=== PATIENT | male | born 1940 | race Caucasian/White ===

== ENCOUNTER 2016-04-17 11:10 | Inpatient (IN) | payer MEDICARE, BC ==
[~2016-04-17] VITALS: Ht 162.6 cm; Wt 102.6 kg
[~2016-04-17 11:10] MED LIST: AMLO1CAP68 PO; ASPI-611 PO; GUAI600T42 PO; KCL PO; METF-200 PO; PANT40TA PO; SIMV40TA82 PO; SUCR1ORA PO; TETR15DR83 BOTH EYES; augmentin PO
--- OUTSIDE RECORDS SUMMARY | 2016-04-17 11:15 | XMS REPORT | Continuity of Care Document ---
Author Author [facility] Organization [facility] Address Unknown Phone Unavailable Allergies Medications Problems Procedures Results Encounters ACCT No. Visit Date/Time Discharge Status Pt. Type Provider Facility Loc./Unit Complaint [id number] 05/01/2013 13:43:00 05/01/2013 23 :59:59 CLS Outpatient
--- OUTSIDE RECORDS SUMMARY | 2016-04-17 11:16 | XMS REPORT | Continuity of Care Document ---
Author Author [facility] Organization [facility] Address Unknown Phone Unavailable Support Name Relationship Address Phone LOBO COOK DO Caregiver [address] [place] [address] Unavailable DON RAY II, MD Caregiver [address] [place] [address] Unavailable DON RAY II, MD Caregiver [address] [place] [address] Unavailable DON RAY II, MD Caregiver [address] [place] [address] Unavailable KLAUDIA GARCIA Next Of Kin [address] [place] [address] Insurance Providers Guarantor Jesus Garcia Address [address] [place] [address] Email DENIED [facility] Number [id number] Subscriber's Name Jesus Garcia Relationship 18 Self Group Number [id number] Payer Medicare Policy Number [id number] Subscriber's Name Jesus Garcia Relationship 18 Self Advance Directives Directive Response Recorded Date/Time Dr Ryan Resuscitation Status Full Code 03/28/16 9:57am Resuscitation Documents on File No 03/28/16 11:51am DPOA for Healthcare Only No 03/30/16 9:05am Living Will No 03/28/16 11:51am Advance Directive Consult Information Given 03/29/16 2:42pm Problems Active Problems Medical Problem Onset Date Status Bradycardia Unknown Resolved CHOLECYSTITIS, PROBABLE ASCENDING CHOLANGITIS Unknown Acute Cataracts, bilateral Unknown Chronic Constipation Unknown Acute Diverticulosis Unknown Chronic Dysphagia Unknown Glaucoma Unknown Chronic HTN (hypertension) Unknown Chronic Hyperlipidemia Unknown Chronic Hypokalemia Unknown Resolved NIDDY (non-insulin dependent diabetes mellitus in young) Unknown Chronic OA (osteoarthritis) Unknown Chronic Obesity Unknown Chronic Pancreatitis Unknown Resolved Pneumonia Unknown Sepsis Unknown UTI Unknown Acute Medications Current Home Medications Medication Dose Units Route Directions Days Qty Instructions Start Date Amlodipine Besylate/Benazepril (Amlodipine-Benazepril 10-20 Mg) 1 Cap Capsule 1 Cap Oral Daily 01/02/09 Aspirin 81 Mg Tablet 81 Mg Oral Daily 10/22/12 Augmentin 875 Mg Oral Twice A Day for Pneumonia 10 Days 04/04/16 Guaifenesin (Mucinex) 600 Mg Tablet.er 600 Mg Oral As Needed Kcl 20 Meq Oral Twice A Day for Hypokalemia 30 Days 60 Bottle Metformin Hcl 500 Mg Tablet Twice A Day 01/02/09 Pantoprazole Sodium (Protonix) 40 Mg Tablet.dr 40 Mg Oral Before Breakfast for Acid Reflux 30 Days 30 Tablet Take 1 tablet, by mouth, one time a day before breakfast. 04/04/16 Simvastatin 40 Mg Tablet 40 Mg Oral Daily 01/02/09 Sucralfate 1 G/10 Ml Suspension 1 G Oral Before Meals And At Bedtime 30 Days 04/04/16 Tetrahydrozoline Hcl (Visine) 15 Ml Drops 15 Ml Ophthalmic Bedtime 02/15/13 Past Home Medications Medication Directions Ordered Status Naproxen 500 Mg Tablet, 500 Mg Oral As Needed 01/02/09 Discontinued Social History Social History Problem Response Recorded Date/Time Onset Date Status Reason for Hospitalization pancreatitis 04/04/2016 1:34pm Not Applicable Not Applicable Chewing Tobacco Status No 02/15/2013 5:24pm Not Applicable Not Applicable Hx Substance Use No 03/28/2016 8:16am Not Applicable Not Applicable Hx Alcohol Use No 03/28/2016 8:16am Not Applicable Not Applicable Has the pt used tobacco in the last 12 months No 03/28/2016 11:54am Not Applicable Not Applicable Query Response Start Date Stop Date Smoking Status Unknown if ever smoked Hospital Discharge Instructions Instructions: Care Instructions: Reason for Hospitalization: pancreatitis I was in the hospital because (patient own words): "Pain in my stomach" Discharge Diet: regular Discharge Activity: as tolerated Follow Up Appointments: FOLLOW UP WITH DR. RAY IN HIS OFFICE ON 04/08/16 AT 9:00 AM. Pending Lab / Results: No Pending Lab Wound/Incision Care: NA Pain Management/Treatment: NA Expected Signs/Symptoms: fatigue Notify Physician If: N,V,abd pain During Business Hours:: Please call the physician's office at [phone] After Business Hours:: Please call [phone] and have the sodium chlorite operator page the physician. Condition at time of discharge: Good Plan of Care Discharge Date 04/04/16 2:05pm Disposition 01 DISCHARGED HOME, SELF-CARE Instructions/Education Provided Pancreatitis (DC) Prescriptions See Medication Section Care Plan and Goals See Discharge Instructions Section Functional Status Query Response Date Recorded Mobility Status Ambulatory April 04, 2016 1:34pm Assistive Devices None April 04, 2016 1:34pm Activity Limitations None April 04, 2016 1:34pm Feeding Ability Independent April 04, 2016 1:34pm Toileting Ability Independent April 04, 2016 1:34pm Grooming Ability Independent April 04, 2016 1:34pm Dressing Ability Independent April 04, 2016 1:34pm Driving Ability Independent April 04, 2016 1:34pm Housework Ability Independent April 04, 2016 1:34pm Meal Preparation Ability Independent April 04, 2016 1:34pm Stair Climbing Ability Independent April 04, 2016 1:34pm Ability to complete ADL's impeded by No change April 04, 2016 1:34pm Cognitive/Perceptual Impairments Impaired vision April 04, 2016 1:34pm Visual Assistive Devices Glasses With patient April 03, 2016 3:14pm Hearing Assistive Devices Left hearing aid Right hearing aid With patient April 03, 2016 3:14pm Preferred Method of Learning Demonstration Listening Pictures Hands on April 03, 2016 3:14pm Allergies, Adverse Reactions, Alerts Allergen Type Severity Reaction Status Last Updated No Known Drug Allergies Allergy Unknown Active 02/15/13 Immunizations Query Response on File Recorded Date/Time Hx Influenza Vaccination Y 12/201503/28/16 11:54am Hx Pneumococcal Vaccination N REFUSED 03/28/2016 03/28/16 11:54am Hx Tetanus, Diptheria, Pertussis UNSURE 02/15/13 12:23pm Hx Influenza Vaccination Y 12/201503/28/16 11:54am Hx Tetanus, Diptheria, Pertussis UNSURE 02/15/13 12:23pm Influenza Vaccine Hx 12/201503/28/16 12:22pm Vital Signs Acute Vital Signs Vital Response Date/Time Temperature (Fahrenheit) 99.5 deg F (96.8 - 99.1) 04/04/2016 1:19pm Temperature (Calculated Celsius) 37.15384 degrees C (36.0 - 37.3) 04/04/2016 1:19pm Temperature Source Temporal 04/01/2016 12:47pm Pulse Rate (adult) 74 bpm (60 - 100) 04/04/2016 1:19pm Respiratory Rate 22 breaths/min (10 - 20) 04/04/2016 1:24pm O2 Sat by Pulse Oximetry 96 % (90 - 100) 04/04/2016 1:19pm Oxygen Delivery Method Nasal Cannula 04/01/2016 7:55pm Oxygen Delivery Method Room Air 04/04/2016 1:19pm Oxygen Flow Rate 1.00 L/min 04/02/2016 1:00am Blood Pressure 144/71 mm Hg 04/04/2016 1:19pm Blood Pressure Source Automatic Cuff 04/04/2016 1:19pm Height (Feet) 5 feet 04/01/2016 8:44pm Height (Inches) 6.00 inches 04/01/2016 8:44pm Weight (Kilograms) 103.500 kg 04/03/2016 10:35am Body Mass Index (BMI) 34.4 03/28/2016 11:51am Results Laboratory Results Test Name Result Units Flags Reference Collection Date/Time Result Date/ Time Comments White Blood Count 15.5 T/MM3 H 4.5-11.0 04/04/2016 4:04/04/2016 5: 34am Red Blood Count 4.28 M/MM3 L 4.50-5.90 04/04/2016 4:04/04/2016 5: 34am Hemoglobin 12.0 GM/DL L 13.5-17.5 04/04/2016 4:04/04/2016 5:34am Hematocrit 35.3 % L 41-53 04/04/2016 4:04/04/2016 5:34am Mean Corpuscular Volume 82.5 UM3 80-100 04/04/2016 4:04/04/2016 5: 34am Mean Corpuscular Hemoglobin 28.0 UUG 26-34 04/04/2016 4:2016 5:34am Mean Corpuscular Hemoglobin Concent 34.0 GM/DL 31-37 04/04/2016 4:04/04/2016 5:34am RDW Standard Deviation 41.8 FL 36.9-50.2 04/04/2016 4:04/04/2016 5 :34am Platelet Count 291 T/MM3 130-400 04/04/2016 4:04/04/2016 5:34am Mean Platelet Volume 9.9 UM3 9.4-12.4 04/04/2016 4:04/04/2016 5: 34am Neutrophils % (Manual) 67.0 % H 33-66 04/04/2016 4:04/04/2016 6: 13am Band Neutrophils % 9.0 % H 0-6 04/04/2016 4:04/04/2016 6:13am Lymphocytes % (Manual) 8.0 % L 23-45 04/04/2016 4:04/04/2016 6: 13am Monocytes % (Manual) 15.0 % H 0-9.0 04/04/2016 4:04/04/2016 6:13am Eosinophils % (Manual) 1.0 % 0-4 04/04/2016 4:04/04/2016 6:13am Band Neutrophils # 1.4 T/MM3 04/04/2016 4:04/04/2016 6:13am Absolute Neutrophils (Manual) 10.4 T/MM3 H 1.8-7.7 04/04/2016 4: 6:13am Lymphocytes # (Manual) 1.2 T/MM3 1-4.8 04/04/2016 4:04/04/2016 6: 13am Monocytes # (Manual) 2.3 T/MM3 H 0-0.8 04/04/2016 4:04/04/2016 6: 13am Eosinophils # (Manual) 0.2 T/MM3 0-0.5 04/04/2016 4:04/04/2016 6: 13am Toxic Granulation 1+ 03/30/2016 8:09am 03/30/2016 8:56am Red Cell Morphology Comment NORMAL 04/04/2016 4:04/04/2016 6: 13am Prothromb Time International Ratio 1.06 H 0.76-1.04 03/28/2016 8:03/28/2016 8:21am THERAPUTIC RANGE=2.00-3.00 FOR ANTI-THROMBOSIS THERAPUTIC RANGE=2.50-3.50 FOR IMPLANTED VALVE Icterus Index < 2 0-7 04/04/2016 4:04/04/2016 5:41am Chemistry Specimen Hemolysis < 15 0-25 04/04/2016 4:04/04/2016 5 :41am 0-25: Specimen Exhibited No Hemolysis. Turbidity < 20 0-20 04/04/2016 4:04/04/2016 5:41am Sodium Level 139 MEQ/L 134-144 04/04/2016 4:04/04/2016 5:41am Potassium Level 2.8 MEQ/L *L 3.6-5 04/04/2016 4:04/04/2016 5:50am Chloride Level 102 MEQ/L 98-107 04/04/2016 4:04/04/2016 5:41am Carbon Dioxide Level 26 MEQ/L 22-30 04/04/2016 4:04/04/2016 5: 41am Anion Gap 11 MEQ/L 5-04/04/2016 4:04/04/2016 5:41am Blood Urea Nitrogen 11.0 MG/DL 9-04/04/2016 4:04/04/2016 5: 41am Creatinine 0.8 MG/DL 0.8-1.5 04/04/2016 4:04/04/2016 5:41am BUN/Creatinine Ratio 14 RATIO 6-04/04/2016 4:04/04/2016 5:41am Glomerular Filtration Rate Calc 94 04/04/2016 4:04/04/2016 5: 41am Glucose Level 130 MG/DL H 75-110 04/04/2016 4:04/04/2016 5:41am Calculated Osmolality 269 MOSM/KG 261-280 04/04/2016 4:04/04/2016 5:41am Calcium Level 7.9 MG/DL L 8.4-10.2 04/04/2016 4:04/04/2016 5:41am Total Bilirubin 0.90 MG/DL 0.20-1.30 04/04/2016 4:04/04/2016 5: 41am Unconjugated Bilirubin 0.30 MG/DL 0.00-1.10 03/28/2016 8:00am 2016 8:50am Conjugated Bilirubin 0.00 MG/DL 0.00-0.30 03/28/2016 8:0003/28/2016 8:50am Alkaline Phosphatase 265 U/L H 38-126 04/04/2016 4:04/04/2016 5: 41am Total Protein 6.2 G/DL L 6.3-8.2 04/04/2016 4:04/04/2016 5:41am Albumin 3.0 G/DL L 3.5-5.0 04/04/2016 4:04/04/2016 5:41am Globulin 3.2 G/DL 2.4-3.6 04/04/2016 4:04/04/2016 5:41am Albumin/Globulin Ratio 0.9 RATIO L 1.1-2.2 04/04/2016 4:04/04/2016 5:41am Aspartate Amino Transf (AST/SGOT) 57 U/L 17-59 04/04/2016 4:2016 5:41am Alanine Aminotransferase (ALT/SGPT) 72 U/L 21-72 04/04/2016 4: 5:41am Cholesterol Level 86 MG/DL L 132-199 03/30/2016 8:03/31/2016 12: 42am Triglycerides Level 100 MG/DL 40-160 03/30/2016 8:03/31/2016 12: 42am HDL Cholesterol Direct 24 MG/DL L 40-60 03/30/2016 8:03/31/2016 12: 42am LDL Cholesterol, Calculated 42.0 L 66-159 03/30/2016 8:2016 12:42am VLDL Cholesterol 20.0 MG/DL 0-28 03/30/2016 8:03/31/2016 12:42am Cholesterol/HDL Ratio 3.6 RATIO 0-5.0 03/30/2016 8:03/31/2016 12: 42am Troponin I < 0.012 ng/ml 0-0.12 03/28/2016 8:03/28/2016 8:38am Troponin values with a difference of 55% increase from orginal troponin value represent a true biological DELTA value. (%increase Calc=Orginal Troponin value, divided by subsequent Troponin value, multiplied by 100) YN-Kcs-K-Type Natriuretic Peptide 231 PG/ML H 0-175 03/28/2016 8: 8:38am Rule in cut points: <50 years old=450; 50-75 years old=900; >75 years old=1800; When utilizing ProBNP rule-in cut points, adjustment for impaired renal function is typically not required. Lipase 130 U/L 23-300 04/02/2016 5:04am 04/02/2016 5:21am Magnesium Level 2.3 MG/DL 1.6-2.3 04/04/2016 4:10am 04/04/2016 6:24am Plasma Lactate 1.3 MMOL/L 0.6-2.2 04/02/2016 5:04am 04/02/2016 5:19am Procalcitonin 0.05 NG/ML 03/28/2016 8:52am 03/28/2016 9:44am PCT </= 0.5 ng/mL - sepsis not likely; PCT >0.5 and </=2 ng/mL - sepsis possible; PCT >2 ng/mL - sepsis likely; PCT >/=10 ng/mL - systemic inflammatory response - sepsis or septic shock highly indicated. Vancomycin Level Trough 8.50 UG/ML L 15-20 03/30/2016 4:08am 03/30/2016 5:01am Urine Collection Type VOIDED-NOT CC-MIDSTR 03/29/2016 1:2016 1:41am Urine Color YELLOW YELLOW 03/29/2016 1:03/29/2016 1:41am Urine Turbidity SL CLOUDY CLEAR 03/29/2016 1:03/29/2016 1:41am Urine Specific [place] 1.025 1.015-1.025 03/29/2016 1:2016 1:41am Urine pH 5.0 5.0-8.0 03/29/2016 1:03/29/2016 1:41am Urine Leukocyte Esterase NEGATIVE NEGATIVE 03/29/2016 1:2016 1:41am Urine Nitrite NEGATIVE NEGATIVE 03/29/2016 1:03/29/2016 1:41am Urine Protein TRACE A NEGATIVE 03/29/2016 1:03/29/2016 1:41am Urine Glucose (UA) NEGATIVE NEGATIVE 03/29/2016 1:03/29/2016 1: 41am Urine Ketones NEGATIVE NEGATIVE 03/29/2016 1:03/29/2016 1:41am Urine Urobilinogen 0.2 EU/DL NORMAL 03/29/2016 1:03/29/2016 1: 41am Urine Bilirubin NEGATIVE NEGATIVE 03/29/2016 1:03/29/2016 1: 41am Urine Blood 3+ A NEGATIVE 03/29/2016 1:03/29/2016 1:41am Urine WBC NONE SEEN /HPF 0-5 03/29/2016 1:03/29/2016 1:50am Urine RBC 5-10 /HPF H 0-3 03/29/2016 1:03/29/2016 1:50am Urine Bacteria NONE SEEN NEGATIVE 03/29/2016 1:03/29/2016 1: 50am Urine Yeast TRACE H NEGATIVE 03/29/2016 1:03/29/2016 1:50am BUDDING Urine Culture Indicated CULT NOT INDICATED 03/29/2016 1:2016 1:50am Glucometer 165 mg/dL H 75-110 04/04/2016 11:51am 04/04/2016 11:55am Microbiology Results Procedure Source Organism/Result Collection Date/Time Result Date/Time Result Status Blood Culture Peripheral/Iv Start NO GROWTH AFTER 5 DAYS 03/28/2016 8:52am 04/02/2016 9:16am Final Name: JESUS GARCIA Unit #: [id number] : 1940 Sex: M DISCHARGE SUMMARY Admit Date: 03/28/16 Report #: [id number] [facility] General Date Date DATE: 04/04/16 TIME: 12:42 Attending Physician Don Ray II, MD Admitting Physician Don Ray II, MD Consulting Physician Mark Dickens MD Admitting Diagnosis 1. Pancreatitis Discharge Diagnosis pancreatitis Procedures EGD showed esophagitis Laboratory Laboratory Tests Test 04/03/16 05:05 04/03/16 05:34 04/03/16 12:23 04/03/16 18:07 White Blood Count 14.6T/MM3 (4.5-11.0) Red Blood Count 4.30M/MM3 (4.50-5.90) Hemoglobin 12.1GM/DL (13.5-17.5) Hematocrit 35.3% (41-53) Mean Corpuscular Volume 82.1UM3 (80-100) Mean Corpuscular Hemoglobin 28.1UUG (26-34) Mean Corpuscular Hemoglobin Concent 34.3GM/DL (31-37) RDW Standard Deviation 41.3FL (36.9-50.2) Platelet Count 268T/MM3 (130-400) Mean Platelet Volume 9.9UM3 (9.4-12.4) Immature Granulocyte % (Auto) % (0.0-0.5) Neutrophils (%) (Auto) % (33-66) Lymphocytes (%) (Auto) % (23-45) Monocytes (%) (Auto) % (0-9.0) Eosinophils (%) (Auto) % (0-4) Basophils (%) (Auto) % (0-2) Absolute Immature Granulocyte (auto T/MM3 (0.00-0.03) Absolute Neutrophils (auto) T/MM3 (1.8-7.7) Absolute Lymphocytes (auto) T/MM3 (1-4.8) Absolute Monocytes (auto) T/MM3 (0-0.8) Absolute Eosinophils (auto) T/MM3 (0-0.5) Absolute Basophils (auto) T/MM3 (0-0.2) Neutrophils % (Manual) 73.0% (33-66) Band Neutrophils % 11.0% (0-6) Lymphocytes % (Manual) 6.0% (23-45) Monocytes % (Manual) 9.0% (0-9.0) Eosinophils % (Manual) 1.0% (0-4) Absolute Neutrophils (Manual) 10.7T/MM3 (1.8-7.7) Band Neutrophils # 1.6T/MM3 Lymphocytes # (Manual) 0.9T/MM3 (1-4.8) Monocytes # (Manual) 1.3T/MM3 (0-0.8) Eosinophils # (Manual) 0.1T/MM3 (0-0.5) Red Cell Morphology Comment Normal Turbidity < 20 (0-20) Sodium Level 139MEQ/L (134-144) Potassium Level 3.0MEQ/L (3.6-5) Chloride Level 102MEQ/L (98-107) Carbon Dioxide Level 26MEQ/L (22-30) Anion Gap 11MEQ/L (5-15) Blood Urea Nitrogen 13.0MG/DL (9-20) Creatinine 0.7MG/DL (0.8-1.5) Glomerular Filtration Rate Calc 109 BUN/Creatinine Ratio 19RATIO (6-26) Glucose Level 134MG/DL (75-110) Calculated Osmolality 270MOSM/KG (261-280) Calcium Level 7.5MG/DL (8.4-10.2) Total Bilirubin 1.30MG/DL (0.20-1.30) Icterus Index < 2 (0-7) Aspartate Amino Transf (AST/SGOT) 78U/L (17-59) Alanine Aminotransferase (ALT/SGPT) 76U/L (21-72) Alkaline Phosphatase 261U/L (38-126) Total Protein 6.3G/DL (6.3-8.2) Albumin 3.0G/DL (3.5-5.0) Globulin 3.3G/DL (2.4-3.6) Albumin/Globulin Ratio 0.9RATIO (1.1-2.2) Chemistry Specimen Hemolysis 22 (0-25) Glucometer 128mg/dL (75-110) 125mg/dL (75-110) 143mg/dL (75-110) Test 04/04/16 01:07 04/04/16 04:10 04/04/16 06:15 04/04/16 11:51 Glucometer 146mg/dL (75-110) 140mg/dL (75-110) 165mg/dL (75-110) White Blood Count 15.5T/MM3 (4.5-11.0) Red Blood Count 4.28M/MM3 (4.50-5.90) Hemoglobin 12.0GM/DL (13.5-17.5) Hematocrit 35.3% (41-53) Mean Corpuscular Volume 82.5UM3 (80-100) Mean Corpuscular Hemoglobin 28.0UUG (26-34) Mean Corpuscular Hemoglobin Concent 34.0GM/DL (31-37) RDW Standard Deviation 41.8FL (36.9-50.2) Platelet Count 291T/MM3 (130-400) Mean Platelet Volume 9.9UM3 (9.4-12.4) Immature Granulocyte % (Auto) % (0.0-0.5) Neutrophils (%) (Auto) % (33-66) Lymphocytes (%) (Auto) % (23-45) Monocytes (%) (Auto) % (0-9.0) Eosinophils (%) (Auto) % (0-4) Basophils (%) (Auto) % (0-2) Absolute Immature Granulocyte (auto T/MM3 (0.00-0.03) Absolute Neutrophils (auto) T/MM3 (1.8-7.7) Absolute Lymphocytes (auto) T/MM3 (1-4.8) Absolute Monocytes (auto) T/MM3 (0-0.8) Absolute Eosinophils (auto) T/MM3 (0-0.5) Absolute Basophils (auto) T/MM3 (0-0.2) Neutrophils % (Manual) 67.0% (33-66) Band Neutrophils % 9.0% (0-6) Lymphocytes % (Manual) 8.0% (23-45) Monocytes % (Manual) 15.0% (0-9.0) Eosinophils % (Manual) 1.0% (0-4) Absolute Neutrophils (Manual) 10.4T/MM3 (1.8-7.7) Band Neutrophils # 1.4T/MM3 Lymphocytes # (Manual) 1.2T/MM3 (1-4.8) Monocytes # (Manual) 2.3T/MM3 (0-0.8) Eosinophils # (Manual) 0.2T/MM3 (0-0.5) Red Cell Morphology Comment Normal Turbidity < 20 (0-20) Sodium Level 139MEQ/L (134-144) Potassium Level 2.8MEQ/L (3.6-5) Chloride Level 102MEQ/L (98-107) Carbon Dioxide Level 26MEQ/L (22-30) Anion Gap 11MEQ/L (5-15) Blood Urea Nitrogen 11.0MG/DL (9-20) Creatinine 0.8MG/DL (0.8-1.5) Glomerular Filtration Rate Calc 94 BUN/Creatinine Ratio 14RATIO (6-26) Glucose Level 130MG/DL (75-110) Calculated Osmolality 269MOSM/KG (261-280) Calcium Level 7.9MG/DL (8.4-10.2) Magnesium Level 2.3MG/DL (1.6-2.3) Total Bilirubin 0.90MG/DL (0.20-1.30) Icterus Index < 2 (0-7) Aspartate Amino Transf (AST/SGOT) 57U/L (17-59) Alanine Aminotransferase (ALT/SGPT) 72U/L (21-72) Alkaline Phosphatase 265U/L (38-126) Total Protein 6.2G/DL (6.3-8.2) Albumin 3.0G/DL (3.5-5.0) Globulin 3.2G/DL (2.4-3.6) Albumin/Globulin Ratio 0.9RATIO (1.1-2.2) Chemistry Specimen Hemolysis < 15 (0-25) Radiology CT showed pancreatitis CXR showed pneumonia and then resolution History of Present Illness Pt presented to ER this am with sudden onset of abd pain at the mid epi/LUQ, in ER found to have elevated WBC, severe elevate lipase, CT showed mod to severe pancreatitis. Pt stated that he felt well the past couple days. Pt denies fever, respiratory/cardiac sxs, diarrhea or constipation or dyspepsia. Pt has been spitting up phelgm recently. Hospital Course Pt was admitted and made NPO, pain meds and IVF, pt improved every day with lipase reducing and decreased pain. 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 Will advance to full liquids tomorrow stable, advance diet (3) HTN (hypertension) Status: Chronic Assessment & Plan: stable, will give IV enalapril 2.5mg IV q 6 Stable elevated, will increase lotrel dose (4) Sepsis Assessment & Plan: continue antibiotics, repeat CBC, blood cultures taken, CXR was normal, UA pending, repeat lipase at 1500 Blood cultures negative (5) Bradycardia Status: Resolved Assessment & Plan: pt on telemetry (6) Hypokalemia Status: Resolved Assessment & Plan: will give IVF with KCL, recheck CMP at 1500 IVF have been stopped and we'll given KCL 20meq BID increase KCL to TID (7) Dysphagia Assessment & Plan: Consult ST and get modified Barium swallow (8) Pneumonia Assessment & Plan: will change from levquin to zosyn IV CXR in am Will send home on Augmentin Code Status Full Code Home Meds Active Scripts [Kcl] No Conflict Check, 20 MEQ PO BID for hypokalemia for 30 Days, #60 BOTTLE 2 Refills Prov:DON RAY II, MD 04/04/16 [augmentin] No Conflict Check, 875 MG PO BID for pneumonia for 10 Days, BOTTLE 1 Refill Prov:DON RAY II, MD 04/04/16 Reported Medications Tetrahydrozoline Hcl (Visine) 15 Ml Drops, 15 ML OP HS 02/15/13 Aspirin (Aspirin) 81 Mg Tablet, 81 MG PO DAILY 10/22/12 Guaifenesin (Mucinex) 600 Mg Tablet.er, 600 MG PO PRN 10/22/12 Simvastatin (Simvastatin) 40 Mg Tablet, 40 MG PO DAILY 01/02/09 Metformin Hcl (Metformin Hcl) 500 Mg Tablet, BID 01/02/09 Amlodipine Besylate/Benazepril (Amlodipine-Benazepril 10-20 Mg) 1 Cap Capsule, 1 CAP PO DAILY 01/02/09 Discontinued Reported Medications Naproxen (Naproxen) 500 Mg Tablet, 500 MG PO PRN 01/02/09 Face to Face Encounter I met with patient on the day of dismissal and discussed follow up appointments , medications, and safety plan. Discharge Disposition DC to home DON RAY II, MD Apr 04, 2016 12:45 Procedures Procedure Status Date Provider(s) Esophagogastroduodenoscopy (EGD) with closed biopsy Completed 04/01/16 MARK DICKENS MD Encounters Encounter Location Arrival/Admit Date Discharge/Depart Date Attending Provider Discharged Inpatient [facility] 03/28/16 9:57am 04/04/16 2:05pm DON RAY II, MD
[2016-04-17] MEDS ORDERED: SUCR1TAB PO (11:33)
[2016-04-17] MEDS ORDERED: PANT40SU PO (11:34)
--- OUTSIDE RECORDS SUMMARY | 2016-04-17 11:56 | XMS REPORT | Continuity of Care Document ---
Author Author [facility] Organization [facility] Address Unknown Phone Unavailable Allergies Medications Problems Procedures Results Encounters ACCT No. Visit Date/Time Discharge Status Pt. Type Provider Facility Loc./Unit Complaint [id number] 05/01/2013 13:43:00 05/01/2013 23 :59:59 CLS Outpatient
[2016-04-17] MEDS ORDERED: NORMAL SALINE 500 ML IV ONE (12:45)
[2016-04-17 12:46] LABS: HCT - HEMATOCRIT 37.8 % (41-53); HGB - HEMOGLOBIN 12.3 GM/DL (13.5-17.5); MEAN CORPUSCULAR HGB CONC(MCHC 32.5 GM/DL (31-37); MEAN CORPUSCULAR VOLUME 85.9 UM3 (80-100); MEAN PLATELET VOLUME 9.8 UM3 (9.4-12.4)
[2016-04-17 12:55] LABS: LACTATE - LACTIC ACID 2.5 MMOL/L (0.6-2.2)
[2016-04-17 12:56] LABS: ALBUMIN 3.8 G/DL (3.5-5.0); ALKALINE PHOSPHATASE 101 U/L (38-126); ALT (SGPT) 25 U/L (21-72); ANION GAP 14 MEQ/L (5-15); AST (SGOT) 24 U/L (17-59); BUN/CREATININE RATIO 11 RATIO (6-26); CALCIUM 9.4 MG/DL (8.4-10.2); CHLORIDE 105 MEQ/L (98-107); CO2 - CARBON DIOXIDE 24 MEQ/L (22-30); GLOMERULAR FILTRATION RATE 72; GLUCOSE 143 MG/DL (75-110); POTASSIUM 4.3 MEQ/L (3.6-5); SODIUM 143 MEQ/L (134-144); TOTAL PROTEIN 7.5 G/DL (6.3-8.2)
[2016-04-17 12:59] LABS: WBC - WHITE BLOOD COUNT 29.2 T/MM3 (4.5-11.0)
[2016-04-17 13:03] LABS: BAND NEUTROPHILS # 0.9 T/MM3; LYMPHOCYTES # (MANUAL) 0.6 T/MM3 (1-4.8); MONOCYTES # (MANUAL) 0.6 T/MM3 (0-0.8); NEUTROPHILS #(MANUAL)-ABSOLUTE 27.2 T/MM3 (1.8-7.7); TOTAL CELLS COUNTED 100 %
[2016-04-17 13:16] LABS: LIPASE 223 U/L (23-300)
[2016-04-17 13:29] LABS: BLOOD, URINE NEGATIVE (NEGATIVE); COLOR,URINE YELLOW (YELLOW); LEUKOCYTE ESTERASE ,URINE NEGATIVE (NEGATIVE); NITRITE,URINE NEGATIVE (NEGATIVE); UROBILINOGEN,URINE 0.2 EU/DL (NORMAL)
[2016-04-17 13:38] LABS: BACTERIA,URINE TRACE (NEGATIVE); MUCUS,URINE PRESENT; RBC,URINE 0-1 /HPF (0-3); SQUAMOUS EPITHELIAL CELL,UR 0-5
[2016-04-17 13:49] LABS: INFLUENZA A AG SCREEN NEGATIVE (NEGATIVE); INFLUENZA B AG SCREEN NEGATIVE (NEGATIVE)
[2016-04-17] MEDS ORDERED: CEFTRIAXONE I.V. (ER USE ONLY) 1 G in NORMAL SALINE 100 ML IV ONE (14:00)
--- OUTSIDE RECORDS SUMMARY | 2016-04-17 14:14 | XMS REPORT | Continuity of Care Document ---
Author Author [facility] Organization [facility] Address Unknown Phone Unavailable Allergies Medications Problems Procedures Results Encounters ACCT No. Visit Date/Time Discharge Status Pt. Type Provider Facility Loc./Unit Complaint [id number] 05/01/2013 13:43:00 05/01/2013 23 :59:59 CLS Outpatient
--- NOTE | 2016-04-17 14:24 | ERPDOC ---
Departure Disposition Decision Date: Apr 17, 2016 Disposition Decision Time: 13:45 Disposition: 02 TO [facility] Impression Impression Impression: Primary Impression: SIRS (systemic inflammatory response syndrome) Severity: Moderate Condition: Improved Seen By: Physician only Referrals: DON RAY II, MD (Family) Problems/Meds/Labs Reviewed?: Yes Medications reviewed and manag: Yes Follow up care ordered?: Yes Mental Status: Alert, Oriented HPI - Abdominal Pain General Chief Complaint: Nausea,Vomiting,Diarrhea Stated Complaint: SIRS Time Seen by Provider: 11:39 Source: patient, family History/Exam Limitations: no limitations HPI - Abdominal Pain Initial Comments 75-year-old male presents to the emergency department with a chief complaint of vomiting and rigors. Patient noted onset of symptoms earlier today. Patient was recently discharged home with a diagnosis of acute pancreatitis. Patient denies any current pain or discomfort. Patient was at home when the symptoms began. Symptoms have resolved prior to arrival to the emergency department. Patient denies any blood in stool or emesis. No other complaints or associated symptoms. He does not note any exacerbating or remitting factors. Occurred At: home Onset: Gradual Allergies: Coded Allergies: No Known Drug Allergies (Unverified Allergy, Unknown, 04/17/16) Past History Patient Surgical History Right TKR Cholecystectomy Circumscision 2002 Past Medical History Metabolic: diabetes, hypercholesterolemia, hypertension Musculoskeletal: osteoarthritis Surgical History General: gallbladder Joint: knee Family History Family PMH: FOUND: cancer, diabetes Vaccines Hx Influenza Vaccination: Yes (12/2015) Hx Pneumococcal Vaccination: No (REFUSED 03/28/2016) Social History Smoking Status: Never smoker Does patient use chewing tobac: No Second Hand Exposure: No Substance Use Type: does not use Alcohol Intake: none Marital Status: Sexuality: female partner Housing: house Household Members: spouse Service: No Current Occupational Status: retired Occupational Hazard: No Advance Directives: Yes Full Code Review of Systems Constitutional Constitutional: DENIES: chills, fever Eyes General: DENIES: erythema, exudate Lids/Accessories: DENIES: erythema, swelling Vision: DENIES: acuity, blurring ENMT Ears: DENIES: drainage, erythema Hearing: DENIES: hearing loss Balance: DENIES: ataxia, falling to one side Sinuses: DENIES: congestion, pain Nose: DENIES: nosebleeds, pain Mouth/Throat: DENIES: painful swallowing, sore throat Teeth: DENIES: pain Jaw: DENIES: pain Cardiovascular Cardiac: DENIES: chest pain, dyspnea on exertion Rhythm/Rate: DENIES: irregular beat, palpitations Vascular: DENIES: pedal edema, unilateral swelling Pulmonary Respiratory: DENIES: cough, dyspnea, sputum GI Upper Abdomen: nausea, vomiting (Resolved. ), DENIES: pain Lower Abdomen: DENIES: diarrhea, pain General: DENIES: dysuria, pain Musculoskeletal General: DENIES: pain, tenderness Integumentary Skin: DENIES: itching, rash Neurological General: DENIES: headache, numbness, weakness Psychiatric Psychiatric: DENIES: emotional instability, suicidal ideation/attempt Endocrine Endocrine: DENIES: polydipsia, polyphagia Hematologic/Lymphatic Hematologic/Lymphatic: DENIES: frequent nosebleeds, lymphadenopathy Allergic/Immunological Allergic/Immunoligical: DENIES: frequent infections, hives Physical Exam General General Nourishment: well nourished, well developed, appears stated age, no acute distress, adult General Body Habitus: well groomed Vitals and Pain First Documented Vital Signs Date Time Temp Pulse Resp B/P Pulse Ox O2 Delivery O2 Flow Rate FiO2 04/17/16 11:14 99.4 112 20 152/68 98 Room Air Weight: Kilograms: 100.200 Height (feet): 5 Height (inches): 4.00 Triage Pain Scale: RN VS reviewed by Provider: Yes Normal Exams: Head: Normocephalic w/o trauma Eyes: Pupils are PERRLA w/ EOMI, No scleral icterus, irritation, or foreign bodies noted ENMT: No facial trauma, nasal exudates, pharyngeal erythema, or exudates are noted Dental: No fractured, loose, or missing teeth noted Neck: Full range of motion, without adenopathy, JVD, bruits or thyromegaly Chest/Resp: Clear all morales, with good airflow, and symmetry bilaterally CV: Regular rate and rhythm, without murmur or gallop, Pulses 2+ all extremities, capillary refill, <2 seconds all ext., no pedal edema noted Abdomen: Bowel sounds positive, soft, non-tender, non-distended, no hepatosplenomegaly, masses or bruits noted Lymphatic: No lymphadenopathy, or lymphedema noted Musculoskeletal: No tenderness, or deformity noted, good range of motion, all extremities Integumentary: No rashes, hives, or bruising noted, hair and nails, without abnormality Neurologic: Patient is alert, and oriented, cranial nerves, motor/sensory/ cerebellar, exams w/o gross deficits, to observation Psychiatric: Patient exhibits, appropriate attention, emotion and affect Differential Diagnoses Considering: Gastroenteritis, Influenza, Pancreatitis, Viral Syndrome Progress Results/Orders Orders Procedure Category Date Status Time Lactate - Lactic Acid LAB 04/17/16 Complete 11:57 Blood Culture ELENA 04/17/16 In Process 11:57 Cbc W/Auto LAB 04/17/16 Complete Diff-Reflex Manual 11:57 Cmp - Comprehensive LAB 04/17/16 Complete Metabolic 11:57 Procalcitonin LAB 04/17/16 Complete 11:57 Iv Lock (Ed Only) EDM 04/17/16 Transmitted 11:57 Chest, Pa & Lateral RAD 04/17/16 Taken 11:57 Lipase LAB 04/17/16 Complete Troponin I W LAB 04/17/16 Complete Hemolysis Index EKG EKG 04/17/16 Taken Normal Saline (Ns) PHA 04/17/16 Complete 12:45 Influenza A/B Screen LAB 04/17/16 Complete 13:21 UA, LAB 04/17/16 Complete Dip&Micro(Complete) & 13:17 Place In Facility: ED ADM 04/17/16 Transmitted 13:57 Lab Results Laboratory Tests Test 04/17/16 12:13 04/17/16 13:17 04/17/16 13:21 White Blood Count 29.2T/MM3 Red Blood Count 4.40M/MM3 Hemoglobin 12.3GM/DL Hematocrit 37.8% Mean Corpuscular Volume 85.9UM3 Mean Corpuscular Hemoglobin 28.0UUG Mean Corpuscular Hemoglobin Concent 32.5GM/DL RDW Standard Deviation 43.9FL Platelet Count 497T/MM3 Mean Platelet Volume 9.8UM3 Immature Granulocyte % (Auto) % Neutrophils (%) (Auto) % Lymphocytes (%) (Auto) % Monocytes (%) (Auto) % Eosinophils (%) (Auto) % Basophils (%) (Auto) % Absolute Immature Granulocyte (auto T/MM3 Absolute Neutrophils (auto) T/MM3 Absolute Lymphocytes (auto) T/MM3 Absolute Monocytes (auto) T/MM3 Absolute Eosinophils (auto) T/MM3 Absolute Basophils (auto) T/MM3 Neutrophils % (Manual) 93.0% Band Neutrophils % 3.0% Lymphocytes % (Manual) 2.0% Monocytes % (Manual) 2.0% Absolute Neutrophils (Manual) 27.2T/MM3 Band Neutrophils # 0.9T/MM3 Lymphocytes # (Manual) 0.6T/MM3 Monocytes # (Manual) 0.6T/MM3 Red Cell Morphology Comment Normal Turbidity < 20 Sodium Level 143MEQ/L Potassium Level 4.3MEQ/L Chloride Level 105MEQ/L Carbon Dioxide Level 24MEQ/L Anion Gap 14MEQ/L Blood Urea Nitrogen 11.0MG/DL Creatinine 1.0MG/DL Glomerular Filtration Rate Calc 72 BUN/Creatinine Ratio 11RATIO Glucose Level 143MG/DL Calculated Osmolality 276MOSM/KG Calcium Level 9.4MG/DL Total Bilirubin 0.80MG/DL Icterus Index < 2 Aspartate Amino Transf (AST/SGOT) 24U/L Alanine Aminotransferase (ALT/SGPT) 25U/L Alkaline Phosphatase 101U/L Troponin I < 0.012ng/ml Total Protein 7.5G/DL Albumin 3.8G/DL Globulin 3.7G/DL Albumin/Globulin Ratio 1.0RATIO Lipase 223U/L Plasma Lactate 2.5MMOL/L Procalcitonin 0.21NG/ML Chemistry Specimen Hemolysis < 15 Urine Collection Type Cleancatch-midstream Urine Color Yellow Urine Turbidity Clear Urine pH 7.0 Urine Specific [place] 1.010 Urine Protein 1+ Urine Glucose (UA) Negative Urine Ketones Negative Urine Blood Negative Urine Nitrite Negative Urine Bilirubin Negative Urine Urobilinogen 0.2EU/DL Urine Leukocyte Esterase Negative Urine RBC 0-1/HPF Urine WBC 1-3/HPF Urine Squamous Epithelial Cells 0-5 Urine Bacteria Trace Urine Mucus Present Urine Culture Indicated Cult not indicated Influenza Type A Antigen Negative Influenza Type B Antigen Negative Medications Current ED Medications Sodium Chloride (NS) 500 ml @ 999 mls/hr Q31M ONCE IV Last administered on t 14:42; Start 04/17/16 at 12:45; Stop 04/17/16 at 13:15; Status DC Progress Progress Labs/imaging were discussed in detail with the patient and family and questions are answered. Patient is given IV hydration gently. Patient does not have a lactic acid greater than 4 and is not hypotensive in the emergency department. At 1355 Sepsis was considered but a source is not yet found. Patient was given Rocephin 1 g intravenously at that time. Patient will be admitted to the hospital in improved condition. CT scan of the abdomen pelvis is pending at this time. CT scan of the abdomen pelvis will be followed by the accepting physician Dr. gresham. Patient and family are in agreement with the current plan of management. Patient is admitted to the hospital in improved condition. There are no further orders from the accepting physician who is in agreement with the current plan of management. EKG EKG : Rate: >100 Rhythm: sinus QRS: RBBB Intervals: normal ST/T: normal Interpreted by: signing physician Xray Xray : Xray: CXR PA/Lat Interpretation: Normal, Interpreted by Me, Faxed Report CT CT : CT: Abd/Pelvis IV contrast Interpretation: Abnormal (interval worsening of diffuse pancreatitis. Evolving low-density pancreatic or Promise-Pancreatic mass lesions may represent evolving pancreatic abscess or pseudocyst.), Reviewed Written Report BRITT CHUN DO Apr 17, 2016 14:24
[2016-04-17] MEDS ORDERED: IOHEXOL 300 MG/ML 100ml INJECTION ONE (14:26)
[2016-04-17] MEDS ORDERED: SALINE FLUSH 10ml SYRINGE ONE (14:27)
[2016-04-17] MEDS ORDERED: NORMAL SALINE 100 ML ONE (14:27)
--- NOTE | 2016-04-17 14:43 | HPPDOC ---
HPI - Adult Date DATE: 04/17/16 TIME: 14:22 General Chief Complaint: Rigors, vomiting History of Present Illness Mr. Garcia is a pleasant 75-year-old gentleman with PMH notable for HTN, HLD, NIDDM and recent admission for acute pancreatitis of unclear etiology that resolved with supportive care. He was discharged on 04/04. During that admission he was also treated for CAP and this had resolved radiographically prior to his discharge per review of imaging. He was discharged on augmentin; WBC was 15K at the time of discharge and reportedly came down to 12K on last check. He finished the antibiotics outpatient. This morning he had 2 episodes of nonbloody, nonbilious emesis at home as well as rigors. He has not had abdominal pain, did not feel poorly after he vomited and currently has no symptoms that concern him. He is feeling well and at his baseline, but lactic acid was slightly high at 2.5 and WBC 29K with left shift/bandemia and he is tachycardic on arrival. Of note, he has had a cholecystectomy previously. He does have a knee replacement but has no joint pain, change in range of motion, warmth or erythema at the knees. His CXR is unremarkable, influenza screen negative, UA unremarkable with no evidence of UTI. He is afebrile and denies any symptoms currently, would like to go home and have some lunch. Past Medical History Past Medical History NIDDM OA Obesity Hyperlipidemia HTN Cataracts HTN Diverticulosis Glaucoma? Surgical History Patient's Surgical History: Right TKR Cholecystectomy Circumscision 2001 Current Medications Home Meds Reported Medications Pantoprazole Sodium (Protonix) 40 Mg Granivankt.dr, 40 MG PO DAILY 04/17/16 Sucralfate (Sucralfate) 1 Gm Tablet, 1 GM PO QID 04/17/16 Tetrahydrozoline Hcl (Visine) 15 Ml Drops, 1 DROP BOTH EYES HS 02/15/13 Aspirin (Aspirin) 81 Mg Tablet, 81 MG PO DAILY 10/22/12 Simvastatin (Simvastatin) 40 Mg Tablet, 40 MG PO HS 01/02/09 Metformin Hcl (Metformin Hcl) 500 Mg Tablet, 500 MG PO BID 01/02/09 Amlodipine Besylate/Benazepril (Amlodipine-Benazepril 10-20 Mg) 1 Cap Capsule, 1 CAP PO DAILY 01/02/09 Allergies: Coded Allergies: No Known Drug Allergies (Unverified Allergy, Unknown, 04/17/16) Family History Family History: DM-sisters x 3 Lung Cancer-B Hypothermia-F Unknown Cancer-M Social History Smoking Status: Former smoker Does patient use chewing tobac: No Second Hand Exposure: No Substance Use Type: does not use Alcohol Intake: none Marital Status: Sexuality: female partner Housing: house Household Members: spouse Service: No Current Occupational Status: retired Occupational Hazard: No Advance Directives: Yes Full Code Review of Systems Constitutional: REPORTS: chills, DENIES: fever, insomnia, weight gain, weight loss Eyes General: DENIES: burning, itching, pain ENMT Ears: DENIES: pain Hearing: DENIES: hearing loss Sinuses: NOT FOUND: congestion Cardiovascular DENIES: chest pain, dyspnea on exertion, orthopnea Rhythm/Rate: DENIES: irregular beat Pulmonary Respiratory: DENIES: cough, pleuritic chest pain, sputum, tachypnea GI Upper Abdomen: vomiting, DENIES: dysphagia, food intolerances, nausea General: DENIES: dysuria, frequency, urgency Musculoskeletal General: DENIES: cramps, pain, weakness Integumentary Skin: DENIES: infections, rash Neurological General: DENIES: numbness, syncope, weakness Psychiatric Psychiatric: DENIES: depression, nervousness Endocrine DENIES: polydipsia, polyphagia Hematologic/Lymphatic DENIES: bleeding gums, easy bruising, lymphadenopathy Allergic/Immunological DENIES: frequent infections, hives, sneezing Physical Exam General General Nourishment: well nourished, well developed, obese, apparent age Vital Signs Vital Signs Date Time Temp Pulse Resp B/P Pulse Ox O2 Delivery O2 Flow Rate FiO2 04/17/16 11:14 99.4 112 20 152/68 98 Room Air Height (Feet): 5 Height (Inches): 4.00 Telemetry Rhythm: Sinus Tachycardia Eyes Brief: FOUND: EOMI, PERRL, NOT FOUND: scleral icterus ENMT Brief: FOUND: hearing intact Neck Brief: NOT FOUND: JVD, adenopathy, nuchal rigidity Respiratory Brief: FOUND: clear all morales, equal bilaterally, NOT FOUND: rales , wheezes Cardiovascular (brief) Cardiac Brief: FOUND: regular rate, regular rhythm, NOT FOUND: pedal edema Abdomen (brief) Abdominal Brief: FOUND: BS normo active x4, soft, NOT FOUND: distended, tender Lymphatic (brief) Lymphatic Brief: NOT FOUND: adenopathy, lymphedema Musculoskeletal (brief) Musculoskeletal Brief: NOT FOUND: deformity, loss of motion, tenderness Integumentary (brief) Integumentary Brief: FOUND: dry, warm, NOT FOUND: rash Neurologic (brief) Neurological Brief: FOUND: cranial 2-12 intact, NOT FOUND: facial droop, ptosis Neurologic RN Documented GCS Eye Opening: Verbal: Motor: Total: Psychiatric (brief) FOUND: alert, attentive, normal affect, oriented Laboratory Laboratory Tests Test 04/17/16 12:13 04/17/16 13:17 04/17/16 13:21 White Blood Count 29.2T/MM3 Red Blood Count 4.40M/MM3 Hemoglobin 12.3GM/DL Hematocrit 37.8% Mean Corpuscular Volume 85.9UM3 Mean Corpuscular Hemoglobin 28.0UUG Mean Corpuscular Hemoglobin Concent 32.5GM/DL RDW Standard Deviation 43.9FL Platelet Count 497T/MM3 Mean Platelet Volume 9.8UM3 Immature Granulocyte % (Auto) % Neutrophils (%) (Auto) % Lymphocytes (%) (Auto) % Monocytes (%) (Auto) % Eosinophils (%) (Auto) % Basophils (%) (Auto) % Absolute Immature Granulocyte (auto T/MM3 Absolute Neutrophils (auto) T/MM3 Absolute Lymphocytes (auto) T/MM3 Absolute Monocytes (auto) T/MM3 Absolute Eosinophils (auto) T/MM3 Absolute Basophils (auto) T/MM3 Neutrophils % (Manual) 93.0% Band Neutrophils % 3.0% Lymphocytes % (Manual) 2.0% Monocytes % (Manual) 2.0% Absolute Neutrophils (Manual) 27.2T/MM3 Band Neutrophils # 0.9T/MM3 Lymphocytes # (Manual) 0.6T/MM3 Monocytes # (Manual) 0.6T/MM3 Red Cell Morphology Comment Normal Turbidity < 20 Sodium Level 143MEQ/L Potassium Level 4.3MEQ/L Chloride Level 105MEQ/L Carbon Dioxide Level 24MEQ/L Anion Gap 14MEQ/L Blood Urea Nitrogen 11.0MG/DL Creatinine 1.0MG/DL Glomerular Filtration Rate Calc 72 BUN/Creatinine Ratio 11RATIO Glucose Level 143MG/DL Calculated Osmolality 276MOSM/KG Calcium Level 9.4MG/DL Total Bilirubin 0.80MG/DL Icterus Index < 2 Aspartate Amino Transf (AST/SGOT) 24U/L Alanine Aminotransferase (ALT/SGPT) 25U/L Alkaline Phosphatase 101U/L Troponin I < 0.012ng/ml Total Protein 7.5G/DL Albumin 3.8G/DL Globulin 3.7G/DL Albumin/Globulin Ratio 1.0RATIO Lipase 223U/L Plasma Lactate 2.5MMOL/L Procalcitonin 0.21NG/ML Chemistry Specimen Hemolysis < 15 Urine Collection Type Cleancatch-midstream Urine Color Yellow Urine Turbidity Clear Urine pH 7.0 Urine Specific [place] 1.010 Urine Protein 1+ Urine Glucose (UA) Negative Urine Ketones Negative Urine Blood Negative Urine Nitrite Negative Urine Bilirubin Negative Urine Urobilinogen 0.2EU/DL Urine Leukocyte Esterase Negative Urine RBC 0-1/HPF Urine WBC 1-3/HPF Urine Squamous Epithelial Cells 0-5 Urine Bacteria Trace Urine Mucus Present Urine Culture Indicated Cult not indicated Influenza Type A Antigen Negative Influenza Type B Antigen Negative Radiology CXR reviewed per my read with no acute findings, no edema, infiltrates or effusions. Sepsis Diagnostic Criteria Sepsis Confirmed/Suspected Infection: Yes SIRS Criteria: Pulse >= 90 beats/min, WBC >=12,000 or <=4,000 Severe Sepsis Lactate >=2.0 mg/dL Additional Information Comments Patient on metformin, ? source of lactic acidosis but renal function normal. Assessment & Plan Problems: (1) Sepsis Status: Acute Qualifiers: Sepsis type: sepsis due to unspecified organism Qualified Codes: A41.9 - Sepsis, unspecified organism Assessment & Plan: Unclear etiology, CTAP pending to rule out pancreatic pseudocyst or other abdominal source, CXR, UA, flu testing all negative thus far Manifestations of sepsis include elevated lactic acid level, leukocytosis with left shift, tachycardia. (2) Hyperlipidemia Status: Chronic Qualifiers: Hyperlipidemia type: mixed hyperlipidemia Qualified Codes: E78.2 - Mixed hyperlipidemia Assessment & Plan: Maintained on statin therapy (3) HTN (hypertension) Status: Chronic Qualifiers: Hypertension type: essential hypertension Qualified Codes: I10 - Essential (primary) hypertension (4) NIDDY (non-insulin dependent diabetes mellitus in young) Status: Chronic Assessment & Plan: On metformin as an outpatient, holding, will use correction scale insulin and AC/HS accuchecks inpatient (5) OA (osteoarthritis) Status: Chronic Qualifiers: Osteoarthritis location: multiple joints Osteoarthritis type: primary Qualified Codes: M15.0 - Primary generalized (osteo)arthritis (6) Obesity Status: Chronic Plan/Intensity of Service 04/17/2016 Admit to the medical floor with telemetry, monitor for any changes Blood cultures and broad spectrum coverage with rocephin, monitor for symptoms that would reveal source CTAP as discussed, will obtain prior to leaving ED Will order peripheral smear for further evaluation given elevated WBC and platelets--? reactive process versus bone marrow/malignancy issue Hold metformin, monitor AC/HS accuchecks with correction scale aspart Continue statin and BP medications and monitor vitals Monitor for fevers, recheck CMP and CBC in AM for surveillance Regular diet if CTAP unremarkable Care will be returned to Dr. Batres, PCP, at discharge Unclear etiology of symptoms but with rigors and worsening leukocytosis warrants further evaluation. Anticipate he will need > 2 midnights for appropriate evaluation. Code Status Full Code Hospital Course Summary Disclaimer The hospital course summary below is not to be considered part of the above Progress Note. Hospital Course Summary 04/17/2016 Admit to the medical floor with telemetry, monitor for any changes Blood cultures and broad spectrum coverage with rocephin, monitor for symptoms that would reveal source CTAP as discussed, will obtain prior to leaving ED Will order peripheral smear for further evaluation given elevated WBC and platelets--? reactive process versus bone marrow/malignancy issue Hold metformin, monitor AC/HS accuchecks with correction scale aspart Continue statin and BP medications and monitor vitals Monitor for fevers, recheck CMP and CBC in AM for surveillance Regular diet if CTAP unremarkable TENNILLE HOFF MD Apr 17, 2016 14:26
--- NOTE | 2016-04-17 14:45 | NUR ---
Admit Patient admitted to medical unit room 141 from ED. Arrived on cart and able to ambulate from cart to bed without difficulty. Admit process completed with patient and patient's significant other providing information.
[2016-04-17 14:53] VITALS: Ht 162.6 cm; Wt 102.6 kg
[2016-04-17 15:00] VITALS: BP 142/68; PULSE 102; RESP 18; TEMP 101.4; O2SAT 95
[2016-04-17] MEDS ORDERED: HYDROMORPHONE 2mg/ml INJECTION IV PRN (15:15)
[2016-04-17] MEDS ORDERED: ONDANSETRON 4mg/2ml INJECTION IV PRN (15:15)
[2016-04-17] MEDS: LR 1,000 ML IV SCH (15:25)
[2016-04-17] MEDS: ACETAMINOPHEN 325 MG TABLET PO PRN (15:25)
[2016-04-17] MEDS: PIPERACILLIN/TAZOBACTAM 3.38 G in NORMAL SALINE 100 ML IV SCH ×2 (15:32→20:47)
[2016-04-17] MEDS: ENOXAPARIN 40 MG/0.4 ML INJECTION SQ SCH (15:32)
[2016-04-17 15:45] VITALS: PULSE 102
--- NOTE | 2016-04-17 16:00 | NUR ---
Status Patient was given tylenol for an elevated temp. Continues to deny abdominal pain or nausea. Dr Dominguez in room and updated family on CT results.
--- NOTE | 2016-04-17 18:35 | NUR ---
Status Patient resting quietly in bed. Denies pain or nausea. PRN Tylenol given for temp earlier in shift. Patient's significant other present in room and helps remind him why he's here. Patient is alert and oriented x3, just does not understand "all this medical lingo" all the time. Patient has been pleasant and cooperative with cares. Up with stand by assist to bathroom, gait is steady and patient could probably be up by self. Minimal needs. Call light within reach.
[2016-04-17 20:00] VITALS: BP 120/62; PULSE 80; RESP 20; TEMP 99.4; O2SAT 95
[2016-04-17] MEDS: TETRAHYDROZOLINE 0.05% EYE DROP 15ml BOTH EYES SCH (20:48)
[2016-04-17 21:00] VITALS: PULSE 80; RESP 18
--- NOTE | 2016-04-17 22:27 | DI ---
INDICATION: ITS.REASON: cough PROCEDURE: CHEST 2-VIEWS UPRIGHT (PA \T\ LAT) Encounter: Initial Comparison: April 08, 2016 Findings: The lungs are stable in appearance without new focal airspace consolidation. There is no pleural effusion or pneumothorax. The heart size, pulmonary vascularity and mediastinal contours are unchanged. IMPRESSION: Stable appearance of the chest without acute cardiopulmonary disease. There is a preliminary report by [facility]. .
[2016-04-18] VITALS (19 sets, daily range): BP systolic 73–134; BP diastolic 48–80; PULSE 84–111; RESP 16–22; TEMP 98.1–101.9; O2SAT 93–99
[2016-04-18] MEDS: PIPERACILLIN/TAZOBACTAM 3.38 G in NORMAL SALINE 100 ML IV SCH (02:39)
[2016-04-18] MEDS: LR 1,000 ML IV SCH ×4 (02:40→17:59)
[2016-04-18] MEDS: ACETAMINOPHEN 325 MG TABLET PO PRN ×3 (03:35→20:21)
--- NOTE | 2016-04-18 03:41 | NUR ---
TEMPERATURE PT HAS A TEMP OF 100.0 ORALLY, PRN TYLENOL GIVEN. WILL CONTINUE TO MONITOR.
[2016-04-18 06:00] LABS: HCT - HEMATOCRIT 33.7 % (41-53); HGB - HEMOGLOBIN 10.9 GM/DL (13.5-17.5); MEAN CORPUSCULAR HGB 27.7 UUG (26-34); MEAN CORPUSCULAR HGB CONC(MCHC 32.3 GM/DL (31-37); MEAN CORPUSCULAR VOLUME 85.8 UM3 (80-100); MEAN PLATELET VOLUME 10.5 UM3 (9.4-12.4); RED BLOOD COUNT 3.93 M/MM3 (4.50-5.90); WBC - WHITE BLOOD COUNT 21.2 T/MM3 (4.5-11.0)
[2016-04-18 06:05] LABS: ALBUMIN 3.2 G/DL (3.5-5.0); ALKALINE PHOSPHATASE 81 U/L (38-126); ALT (SGPT) 29 U/L (21-72); ANION GAP 12 MEQ/L (5-15); AST (SGOT) 20 U/L (17-59); BUN/CREATININE RATIO 13 RATIO (6-26); CALCIUM 8.7 MG/DL (8.4-10.2); CHLORIDE 108 MEQ/L (98-107); CO2 - CARBON DIOXIDE 23 MEQ/L (22-30); GLOMERULAR FILTRATION RATE 72; GLUCOSE 122 MG/DL (75-110); LIPASE 108 U/L (23-300); POTASSIUM 3.8 MEQ/L (3.6-5); SODIUM 143 MEQ/L (134-144); TOTAL PROTEIN 6.5 G/DL (6.3-8.2)
--- NOTE | 2016-04-18 06:19 | NUR ---
SHIFT SUMMARY PT IS ALERT AND ORIENTED X 3, VITAL SIGNS HAVE BEEN STABLE ON ROOM AIR. PT DENIES PAIN THROUGHOUT THIS SHIFT, DENIES N/V AND SOA. PT UP ADLIB TO BATHROOM BUT CALLS IF NEEDING ASSISTANCE. PT BECOMES TACHYCARDIC WHILE AMBULATING TO THE BATHROOM BUT DROPS BACK TO HIS BASELINE 70'S AND 80'S. PT HAS SLEPT THROUGH THE NIGHT. PT HAS HAD A LOW GRADE TEMP, GIVEN PRN TYLENOL. AFEBRILE THE REMAINDER OF THE SHIFT. PT REMAINS NPO: EXCEPT FOR MEDICATIONS AT THIS TIME. WILL CONTINUE TO MONITOR.
[2016-04-18 06:33] LABS: BAND NEUTROPHILS # 1.9 T/MM3; LYMPHOCYTES # (MANUAL) 1.1 T/MM3 (1-4.8); MONOCYTES # (MANUAL) 1.3 T/MM3 (0-0.8); TOTAL CELLS COUNTED 100 %
[2016-04-18 06:34] LABS: ANISOCYTOSIS 1+; POIKILOCYTOSIS 1+
[2016-04-18] MEDS: ENOXAPARIN 40 MG/0.4 ML INJECTION SQ SCH (08:37)
[2016-04-18] MEDS: PIPERACILLIN/TAZOBACTAM 3.375 G in NORMAL SALINE 100 ML IV SCH ×3 (08:39→20:20)
[2016-04-18] MEDS ORDERED: PANTOPRAZOLE 40 MG TABLET PO SCH (09:00)
--- NOTE | 2016-04-18 09:11 | DI ---
Indication: ITS.REASON: abd pain PROCEDURE: CT ABD/PELVIS W/CONTRAST ONLY: Encounter: Initial Comparison: None Technique: Axial CT images were performed through the abdomen and pelvis after the administration of intravenous contrast. Coronal and sagittal two-dimensional reformats. Automated Exposure Control and Iterative Reconstruction dose reducing techniques were utilized. Contrast: Omnipaque 300 100 mL Findings: In the interim, there is increasing enlargement, heterogeneity and continued stranding of the peripancreatic fat and blurring of its margins. Some of the substance of the pancreas is of lower attenuation postcontrast suggesting some degree of necrosis and cystic change. 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 Liver, spleen, adrenal glands, and kidneys are stable in appearance. Bilateral nonobstructing renal calculi again identified. Some secondary mild duodenal inflammatory changes suspected. Cystic changes associated with the pancreas are impressing upon the posterior margin of the gastric body in the lesser sac. The remainder of the bowel appears normal. Some diverticular changes of the sigmoid colon are again noted noninflamed. The great vessels, urinary bladder, ureters and reproductive viscera remain stable. Bone window review demonstrates extreme bulky osteophytosis associated with the thoracolumbar spine diffusely; no evidence of bull osseous aggressive lesion. Impression: 1. Significant imaging evidence of progression in terms of the degree of acute/subacute pancreatitis which is now considered severe given areas of bull necrosis and liquefaction particularly in the pancreatic body. 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 2. Other incidental findings as described above remain stable. .
[2016-04-18] MEDS: NS 500 ML IV PRN ×2 (09:13→15:57)
--- NOTE | 2016-04-18 11:23 | NUR ---
CM CM VISITED PT/SPOUSE. CM EXPLAINED ROLE AND PROVIDED CONTACT INFORMATION. PT PLANS TO RETURN HOME POST HOSPITAL STAY.PT DENIES NEEDS AT THIS TIME. PT/SPOUSE AWARE TO CONTACT CM IF NEEDS ARISE.
[2016-04-18] MEDS ORDERED: NORMAL SALINE 500 ML IV ONE ×2 (15:30→17:15)
--- NOTE | 2016-04-18 16:02 | PNPDOC ---
Subjective Date DATE: 04/18/16 TIME: 15:44 Subjective F/U: Severe sepsis Had episode of nausea and 'spit up' today about 1300. Noted ab pain with this, otherwise not having ab discomfort. Passing stool. Notes felling feverish at time. Breathing well without SOA, cough or congestion. No pain with breathing or ab pain with breathing. Denies chest pressure or pain. Notes rash to arms, legs and trunk-some itching. WBC decreased to 21.2. Platelets decreased to 396. Creatinine stable at 1.0. Temp elevation to 100.7. Objective Vital Signs Vital signs Vital Signs Date Time Temp Pulse Resp B/P Pulse Ox O2 Delivery O2 Flow Rate FiO2 04/18/16 15:23 98.1 96 20 85/51 94 Room Air Telemetry Rhythm: Sinus Tachycardia Height (Feet): 5 Height (Inches): 4.00 Weight (Kilograms): 100.300 General General Appearance: Alert, Obese, Orientated x 3, Well Nourished, Well Developed, Cooperative, Looks Stated Age Eyes (Brief) Eyes: FOUND: EOMI, PERRL, NOT FOUND: scleral icterus ENMT (Brief) ENMT: FOUND: hearing intact (Wears hearing aides ), mucosa moist Neck (Brief) Neck: FOUND: midline, NOT FOUND: nuchal rigidity, spasm Respiratory (Brief) Respiratory: FOUND: clear all morales, equal bilaterally, NOT FOUND: rales, wheezes Cardiovascular (Brief) Cardiac: FOUND: regular rate, regular rhythm, NOT FOUND: pedal edema Abdomen (Brief) Abdominal: FOUND: BS normo active x4, soft, NOT FOUND: distended, tender Extremities (Brief) Extremity : Side: Bilateral Extremity: leg Extremity Finding: FOUND: other (SCD in place ), NOT FOUND: edema Musculoskeletal (Brief) Musculoskeletal: FOUND: extremities move equally, NOT FOUND: deformity, spasm, tenderness Integumentary (Brief) Integumentary: FOUND: dry, rash (Faint on arms ), warm Neurologic (Brief) Neurological: FOUND: cranial 2-12 intact, motor (intact ) Psychiatric (Brief) Psychiatric: FOUND: alert, attentive, normal affect, oriented Laboratory Laboratory Laboratory Tests 04/17/16 12:13 04/18/16 04:45 Laboratory Tests 04/17/16 12:13 04/18/16 04:45 Microbiology Microbiology Microbiology Date/Time Source Procedure Growth Status 04/17/16 12:30 Peripheral/Iv Start Blood Culture - Preliminary NO GROWTH AFTER 24 HOURS Resulted 04/17/16 12:13 Peripheral/Iv Start Blood Culture - Preliminary NO GROWTH AFTER 24 HOURS Resulted Sepsis Diagnostic Criteria Sepsis Confirmed/Suspected Infection: Yes SIRS Criteria: Pulse >= 90 beats/min, WBC >=12,000 or <=4,000 Severe Sepsis Lactate >=2.0 mg/dL Assessment & Plan Problems: (1) Severe sepsis Status: Acute Assessment & Plan: Manifestations of sepsis include elevated lactic acid level , leukocytosis with left shift, tachycardia. (2) Type II diabetes mellitus Status: Chronic Qualifiers: Diabetes mellitus complication status: without complication Diabetes mellitus prison insulin use: without long term care pharmacist use Qualified Codes: E11.9 - Type 2 diabetes mellitus without complications Assessment & Plan: On metformin as an outpatient, holding, will use correction scale insulin and AC/HS accuchecks inpatient (3) HTN (hypertension) Status: Chronic Qualifiers: Hypertension type: essential hypertension Qualified Codes: I10 - Essential (primary) hypertension (4) Hyperlipidemia Status: Chronic Qualifiers: Hyperlipidemia type: mixed hyperlipidemia Qualified Codes: E78.2 - Mixed hyperlipidemia Assessment & Plan: Maintained on statin therapy (5) OA (osteoarthritis) Status: Chronic Qualifiers: Osteoarthritis location: multiple joints Osteoarthritis type: primary Qualified Codes: M15.0 - Primary generalized (osteo)arthritis (6) Esophagitis Status: Chronic Assessment & Plan: EGD Apr 02, 2016: Severe distal esophagitis with ulceration. (7) Obesity Status: Chronic Qualifiers: Obesity type: due to excess calories Obesity severity: non-morbid Qualified Codes: E66.09 - Other obesity due to excess calories Plan/Intensity of Service Continue with Zosyn for antimicrobial coverage. Continue IVF for support due to NPO status. 250cc fluid bolus as BP with decrease this afternoon. Consult with Dr Godfrey due to CT Ab abnormality - concern for pancreatic pseudocyst. NPO for bowel rest. Add SCD for DVT prevention - hold on Lovenox in case Sx procedure required. Recheck CMP, Mg, CBC, and lipase in am. Case discussed with Dr Godfrey and nursing staff. DVT Prophylaxis: SCD'S Code Status Full Code Hospital Course Summary Disclaimer The hospital course summary below is not to be considered part of the above Progress Note. Hospital Course Summary 04/17/2016 Admit to the medical floor with telemetry, monitor for any changes Blood cultures and broad spectrum coverage with rocephin, monitor for symptoms that would reveal source CTAP as discussed, will obtain prior to leaving ED Will order peripheral smear for further evaluation given elevated WBC and platelets--? reactive process versus bone marrow/malignancy issue Hold metformin, monitor AC/HS accuchecks with correction scale aspart Continue statin and BP medications and monitor vitals Monitor for fevers, recheck CMP and CBC in AM for surveillance Regular diet if CTAP unremarkable 04/18 Had episode of nausea and 'spit up' today about 1300. Noted ab pain with this, otherwise not having ab discomfort. Passing stool. Notes felling feverish at time. Breathing well without SOA, cough or congestion. No pain with breathing or ab pain with breathing. Denies chest pressure or pain. Notes rash to arms, legs and trunk-some itching. WBC decreased to 21.2. Platelets decreased to 396. Creatinine stable at 1.0. Temp elevation to 100.7. Continue with Zosyn for antimicrobial coverage. Continue IVF for support due to NPO status. 250cc fluid bolus as BP with decrease this afternoon. Consult with Dr Godfrey due to CT Ab abnormality - concern for pancreatic pseudocyst. NPO for bowel rest. Add SCD for DVT prevention - hold on Lovenox in case Sx procedure required. Recheck CMP, Mg, CBC, and lipase in am. BENEDICT TRUONG MD Apr 18, 2016 15:47
[2016-04-18] MEDS: DiphenhydrAMINE 50 MG/ML INJECTION IV PRN (17:41)
--- NOTE | 2016-04-18 18:40 | NUR ---
Summary Pt A&O X3. Pt has denied pain and nausea this shift. Pt developed a rash all over the body, Dr. Mcpherson notified. Orders given for PRN bendadryl. Pt was up to BR and stated he felt dizzy, Pts blood pressure was checked when back to bed. BP was low at the time. Pt received 250cc bolus for low BP per Dr. Santos orders. BP didn't improve. Dr. Mcpherson notified again, 500cc bolus given at that time. See provider notification. Pt has been on RA. Pt has had adequate output and BMs today. has been at beside all day.
[2016-04-18] MEDS: PANTOPRAZOLE 40mg INJECTION IV SCH (20:19)
--- NOTE | 2016-04-18 20:30 | CONSF ---
DATE OF CONSULTATION 04/18/2016 HISTORY This patient is 75 years old. This patient underwent attempted laparoscopic cholecystectomy with conversion to open laparotomy, extensive adhesiolysis, open cholecystectomy and intraoperative cholangiograms on 02/15/[address] Petr Andersen at [facility] at [place], [place]. Postoperative diagnosis was acute gangrenous cholecystitis. The patient did come to [facility] Emergency Room on 03/28/2016 with acute-onset epigastric and left upper quadrant abdominal pain. Serum lipase was found be 48,760 on 03/28/2016. White blood cell count was 20,[address] scan of the abdomen and pelvis performed on 03/28/2016 showed acute pancreatitis. The patient was admitted to [facility] on 03/28/2016 and received treatment for acute pancreatitis. The acute pancreatitis did appear to respond to this treatment and the condition of the patient did gradually improve. The patient was hospitalized at [facility] from 03/28/2016 to 04/04/2016 during this hospitalization. White blood cell count was 15,000 at the time of discharge from this hospitalization. The patient also had some community-acquired pneumonia during this same hospitalization and was treated with antibiotics for the pneumonia. The patient did finish the antibiotic treatment as an outpatient. The white blood cell count reportedly came down to 12,000 when it was checked in the office after discharge from the hospital. The patient did have two episodes of nonbloody emesis on the morning of 04/17/2016 as well as rigors. The patient did not have any abdominal pain at this time. The patient did come in to [facility] Emergency Room for evaluation of this on 04/17/2016. The patient was noted to have tachycardia. Chest x-ray at the emergency room was unremarkable. The influenza screen was negative. Urinalysis was unremarkable with no evidence of urinary tract infection. The patient was afebrile at the time of evaluation at the emergency room. White blood cell count was 29,200 with 3 bands at this time. Serum lipase was 223. Plasma lactate was elevated at 2.5. Procalcitonin was 0.21. Repeat plasma lactate was 2.3. The patient was admitted to [facility] from the emergency room with sepsis of unclear etiology. The patient did undergo a CT scan of the abdomen and pelvis on 04/17/2016. This did show some heterogeneity of the pancreas with stranding of the peripancreatic fat and blurring of the margins. 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 The radiologist thought that there was progression in terms of the degree of acute and subacute pancreatitis compared to the CT scan appearance from the March 2016 hospitalization. The radiologist thought that the acute and subacute pancreatitis was severe with areas of possible bull necrosis and liquefaction in the pancreatic body. It was thought the patient might be developing some intrapancreatic and adjacent pseudocysts. The patient has been receiving treatment with intravenous Zosyn. The patient has had some nausea. He continues to deny abdominal pain on 04/18/2016. He is having bowel movements. The patient has developed a rash on his arms, legs and trunk of his body. The white blood cell count has decreased to 21,200 with 9 bands. The patient denies any abdominal pain at this time. Serum lipase was 108 on 04/18/2016. PHYSICAL EXAMINATION Vital signs: Temperature was 100.5 degrees oral at 1156 hours. Temperature was 100.7 degrees oral at 1446 hours. Pulse is 95. Respiratory rate is 22. Blood pressure is 115/61. Oxygen saturation is 93% on room air. ABDOMEN: The abdomen is soft and completely nontender at this time. No abdominal masses. SKIN: No jaundice. IMPRESSION 1. Severe sepsis of uncertain etiology. 2. Findings suggesting severe acute or subacute pancreatitis with possible areas of bull necrosis and liquefaction at the body of the pancreas on 04/17/2016 CT scan of the abdomen and pelvis. 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 3. Status post open cholecystectomy on 02/15/2013. RECOMMENDATIONS 1. Continue intravenous Zosyn. 2. The patient could undergo a [id number] fine-needle aspiration of pancreatic necrosis for Gram stain and culture. If the [id number] fine-needle aspiration confirms the diagnosis of infected pancreatic necrosis this would support a decision to transfer the patient to a tertiary care center at [place], [place] to undergo surgical pancreatic debridement. JACKIE
[2016-04-18] MEDS: TETRAHYDROZOLINE 0.05% EYE DROP 15ml BOTH EYES SCH (22:57)
--- NOTE | 2016-04-18 23:14 | NUR ---
STATUS PT IS SLEEPING AT THE MOMENT. HE WAS GIVEN TYLENOL FOR MILD TEMP AND ZOFRAN FOR NAUSEA WITH GREEN EMESIS. PT HAD BILE EMESIS . WAS ASSISTED TO THE BATHROOM BY THIS NURSE. BP WITHIN NORMAL RANGE. PT WAS EDUCATED ON THE USE OF THE CALL LIGHT AND SAFETY. WILL CONTINUE TO MONITOR.
[2016-04-19] VITALS (9 sets, daily range): BP systolic 95–119; BP diastolic 59–64; PULSE 87–99; RESP 20; TEMP 99–100.1; O2SAT 92–95
[2016-04-19] MEDS: PIPERACILLIN/TAZOBACTAM 3.375 G in NORMAL SALINE 100 ML IV SCH ×2 (03:32→09:45)
[2016-04-19] MEDS: LR 1,000 ML IV SCH (03:35)
--- NOTE | 2016-04-19 06:42 | NUR ---
SUMMARY PT SLEEPING AT THE MOMENT. WAS GIVEN ZOFRAN X1 FOR NAUSEA AND TYLENOL X 1 FOR ELEVATED TEMP. TEMP WITHIN RANGE. PT KEEP SPITING IN THE EMESIS BAG. HE SAYS HE IS DOING FINE. WAS UP X 1 WITH ASSIST TO USE THE BATHROOM. PT WAS EDUCATED DEBRANDER LIGHT USE AND SAFETY. BED ALARM ON.
[2016-04-19 06:43] LABS: HCT - HEMATOCRIT 36.7 % (41-53); HGB - HEMOGLOBIN 11.9 GM/DL (13.5-17.5); MEAN CORPUSCULAR HGB 27.9 UUG (26-34); MEAN CORPUSCULAR HGB CONC(MCHC 32.4 GM/DL (31-37); MEAN CORPUSCULAR VOLUME 85.9 UM3 (80-100); MEAN PLATELET VOLUME 10.2 UM3 (9.4-12.4); RED BLOOD COUNT 4.27 M/MM3 (4.50-5.90); WBC - WHITE BLOOD COUNT 15.1 T/MM3 (4.5-11.0)
[2016-04-19 06:53] LABS: ALBUMIN 2.8 G/DL (3.5-5.0); ALBUMIN/GLOBULIN RATIO 0.9 RATIO (1.1-2.2); ALKALINE PHOSPHATASE 80 U/L (38-126); ALT (SGPT) 28 U/L (21-72); ANION GAP 15 MEQ/L (5-15); AST (SGOT) 23 U/L (17-59); BUN/CREATININE RATIO 10 RATIO (6-26); CHLORIDE 109 MEQ/L (98-107); CO2 - CARBON DIOXIDE 21 MEQ/L (22-30); CREATININE 2.7 MG/DL (0.8-1.5); GLOMERULAR FILTRATION RATE 23; GLUCOSE 152 MG/DL (75-110); LIPASE 45 U/L (23-300); MAGNESIUM 1.5 MG/DL (1.6-2.3); POTASSIUM 3.8 MEQ/L (3.6-5); SODIUM 145 MEQ/L (134-144); TOTAL PROTEIN 5.8 G/DL (6.3-8.2)
[2016-04-19 06:57] LABS: BAND NEUTROPHILS # 2.7 T/MM3; LYMPHOCYTES # (MANUAL) 1.4 T/MM3 (1-4.8); MONOCYTES # (MANUAL) 0.6 T/MM3 (0-0.8); NEUTROPHILS #(MANUAL)-ABSOLUTE 10.4 T/MM3 (1.8-7.7); TOTAL CELLS COUNTED 100 %
[2016-04-19 06:58] LABS: ANISOCYTOSIS 1+; POIKILOCYTOSIS 1+
[2016-04-19] MEDS: DiphenhydrAMINE 50 MG/ML INJECTION IV PRN (07:41)
[2016-04-19] MEDS: PANTOPRAZOLE 40mg INJECTION IV SCH ×2 (09:44→21:41)
[2016-04-19] MEDS ORDERED: DiphenhydrAMINE 50 MG/ML INJECTION IV ONE (09:45)
--- NOTE | 2016-04-19 10:27 | NUR ---
RENAL DOSING: ZOSYN Today's SCr = 2.7 mg/dl. Calculated CrCl = 33ml/min. Adjusted PIPERACILLIN/TAZOBACTAM regimen to 2.25gm IV q6hrs. Will continue to watch renal fx and adjust dosing as able. thank you
--- NOTE | 2016-04-19 11:10 | NUR ---
#16 Russian cavazos cathater placed easily with immediate return of concentrated urine draining to DD bag. Stat lock to left leg to secure cavazos. at bedside.
--- NOTE | 2016-04-19 14:51 | PNPDOC ---
Subjective Date DATE: 04/19/16 TIME: 14:34 Subjective F/U: Severe sepsis, Ab mass-abscess vs pseudocyst, TIM Doing about the same. Notes minimal abdominal pain - some soreness at times, but not really hurting. No nausea, but had episodes of vomiting small amounts. Passing flatus and does report small stool today. Breathing well-no SOA or congested. No pain with breathing or cough. No chest heaviness or pressure. No f /c. Objective Vital Signs Vital signs Vital Signs Date Time Temp Pulse Resp B/P Pulse Ox O2 Delivery O2 Flow Rate FiO2 04/19/16 11:59 99.4 97 20 103/59 92 Room Air Telemetry Rhythm: Sinus Tachycardia Height (Feet): 5 Height (Inches): 4.00 Weight (Kilograms): 103.400 General General Appearance: Alert, Obese, Orientated x 3, Well Nourished, Well Developed, Cooperative, No Acute Distress, Looks Stated Age Eyes (Brief) Eyes: FOUND: EOMI, PERRL, NOT FOUND: scleral icterus ENMT (Brief) ENMT: FOUND: hearing intact (Wears hearing aides ), NOT FOUND: mucosa moist ( Dry ) Neck (Brief) Neck: FOUND: midline, NOT FOUND: nuchal rigidity, spasm Respiratory (Brief) Respiratory: FOUND: clear all morales, equal bilaterally, other (No distress on RA ), NOT FOUND: rales, wheezes Cardiovascular (Brief) Cardiac: FOUND: regular rate, regular rhythm, NOT FOUND: pedal edema Abdomen (Brief) Abdominal: FOUND: BS normo active x4, soft, tender (+ tender in RUQ, Mid upper quadratant to heavy palpation. No rebound. ) (Brief) Male: FOUND: other (Almeida placed ) Extremities (Brief) Extremity : Side: Bilateral Extremity: leg Extremity Finding: FOUND: other (SCD ), NOT FOUND: edema Musculoskeletal (Brief) Musculoskeletal: FOUND: extremities move equally, NOT FOUND: deformity, loss of motion, spasm Integumentary (Brief) Integumentary: FOUND: dry, warm Neurologic (Brief) Neurological: FOUND: cranial 2-12 intact, motor (Intact ) Psychiatric (Brief) Psychiatric: FOUND: alert, attentive, normal affect, oriented Laboratory Laboratory Laboratory Tests 04/18/16 04:45 04/19/16 06:32 Laboratory Tests 04/18/16 04:45 04/19/16 06:32 Microbiology Microbiology Microbiology Date/Time Source Procedure Growth Status 04/17/16 12:30 Peripheral/Iv Start Blood Culture - Preliminary NO GROWTH AFTER 48 HOURS Resulted 04/17/16 12:13 Peripheral/Iv Start Blood Culture - Preliminary NO GROWTH AFTER 48 HOURS Resulted Sepsis Diagnostic Criteria Sepsis Confirmed/Suspected Infection: Yes SIRS Criteria: Pulse >= 90 beats/min, WBC >=12,000 or <=4,000 Severe Sepsis Lactate >=2.0 mg/dL Assessment & Plan Problems: (1) Severe sepsis Status: Acute Assessment & Plan: Manifestations of sepsis include elevated lactic acid level , leukocytosis with left shift, tachycardia. (2) Pancreatic pseudocyst Status: Acute Assessment & Plan: Suspect pseudocyst - ? abscess formation. (3) Acute kidney injury Status: Acute Assessment & Plan: Likely ATN due to contrast and low blood pressure. (4) Type II diabetes mellitus Status: Chronic Qualifiers: Diabetes mellitus complication status: without complication Diabetes mellitus longterm insulin use: without longterm use Qualified Codes: E11.9 - Type 2 diabetes mellitus without complications Assessment & Plan: On metformin as an outpatient, holding, will use correction scale insulin and AC/HS accuchecks inpatient (5) HTN (hypertension) Status: Chronic Qualifiers: Hypertension type: essential hypertension Qualified Codes: I10 - Essential (primary) hypertension (6) Hyperlipidemia Status: Chronic Qualifiers: Hyperlipidemia type: mixed hyperlipidemia Qualified Codes: E78.2 - Mixed hyperlipidemia Assessment & Plan: Maintained on statin therapy (7) OA (osteoarthritis) Status: Chronic Qualifiers: Osteoarthritis location: multiple joints Osteoarthritis type: primary Qualified Codes: M15.0 - Primary generalized (osteo)arthritis (8) Esophagitis Status: Chronic Assessment & Plan: EGD Apr 02, 2016: Severe distal esophagitis with ulceration. (9) Obesity Status: Chronic Qualifiers: Obesity type: due to excess calories Obesity severity: non-morbid Qualified Codes: E66.09 - Other obesity due to excess calories Plan/Intensity of Service Almeida placed due to TIM-likely ATN from hypotension and IV contrast. Renal US ordered. Continue with IVF - will give additional 500cc bolus. Monitor urine output. Hold Nephrotoxins. Continue with Zosyn for antimicrobial coverage. Continue Bowel rest. Recheck CMP in am to monitor electrolytes and renal status - will need to monitor liver enzymes due to ab mass. Recheck CBC in am due to leukocytosis. Case discussed with patient and his . DVT Prophylaxis: SCD'S Code Status Full Code Hospital Course Summary Disclaimer The hospital course summary below is not to be considered part of the above Progress Note. Hospital Course Summary 04/17/2016 Admit to the medical floor with telemetry, monitor for any changes Blood cultures and broad spectrum coverage with Zosyn, monitor for symptoms that would reveal source CTAP as discussed, will obtain prior to leaving ED Will order peripheral smear for further evaluation given elevated WBC and platelets--? reactive process versus bone marrow/malignancy issue Hold metformin, monitor AC/HS accuchecks with correction scale aspart Hold statin and BP medications and monitor vitals Monitor for fevers, recheck CMP and CBC in AM for surveillance Regular diet if CTAP unremarkable 04/18 Had episode of nausea and 'spit up' today about 1300. Noted ab pain with this, otherwise not having ab discomfort. Passing stool. Notes felling feverish at time. Breathing well without SOA, cough or congestion. No pain with breathing or ab pain with breathing. Denies chest pressure or pain. Notes rash to arms, legs and trunk-some itching. WBC decreased to 21.2. Platelets decreased to 396. Creatinine stable at 1.0. Temp elevation to 100.7. Continue with Zosyn for antimicrobial coverage. Continue IVF for support due to NPO status. 250cc fluid bolus as BP with decrease this afternoon. Consult with Dr Godfrey due to CT Ab abnormality - concern for pancreatic pseudocyst. NPO for bowel rest. Add SCD for DVT prevention - hold on Lovenox in case Sx procedure required. Recheck CMP, Mg, CBC, and lipase in am. 04/19 Doing about the same. Notes minimal abdominal pain - some soreness at times, but not really hurting. No nausea, but had episodes of vomiting small amounts. Passing flatus and does report small stool today. Breathing well-no SOA or congested. No pain with breathing or cough. No chest heaviness or pressure. No f /c. WBC decrease to 15.1-69% polys and 18% bands. Creatinine increased to 2.7. Potassium 3.8. Lipase normal. Almeida placed due to TIM-likely ATN from hypotension and IV contrast. Renal US ordered. Continue with IVF - will give additional 500cc bolus. Monitor urine output. Hold Nephrotoxins. Continue with Zosyn for antimicrobial coverage. Continue Bowel rest. Recheck CMP in am to monitor electrolytes and renal status - will need to monitor liver enzymes due to ab mass. Recheck CBC in am due to leukocytosis. BENEDICT TRUONG MD Apr 19, 2016 14:38
[2016-04-19] MEDS ORDERED: NORMAL SALINE 500 ML IV SCH (15:00)
[2016-04-19] MEDS: PIPERACILLIN/TAZOBACTAM 2.25 G in NORMAL SALINE 100 ML IV SCH ×2 (15:32→21:41)
--- NOTE | 2016-04-19 16:54 | DI ---
EXAM: US RENAL DATE: 04/19/2016 9:37 AM SITE OF DICTATION: [place]. INDICATION: ITS.REASON: Acute kidney injury COMPARISON: None available. TECHNIQUE: Multiple real-time grayscale sonographic images were obtained of the right and left kidneys with color flow and spectral analysis. FINDINGS: The right kidney demonstrates normal corticomedullary differentiation and measures 10.3 x 5.0 x 5.9 cm. There is no right sided mass, calculus or hydronephrosis. The left kidney demonstrates normal corticomedullary differentiation and measures 10.9 x 4.7 x 6.0 cm. There is no left sided mass, calculus or hydronephrosis. IMPRESSION: Normal appearance of the right and left kidneys with normal cortical medullary differentiation. No hydronephrosis. No calculi are visualized with ultrasound images. .
--- NOTE | 2016-04-19 18:14 | NUR ---
SHIFT SUMMARY: Remains NPO. Almeida cathater placed. Recieved 500 cc Fluid Bolus. Urine is now less concentrated ;output has improved. Denies pain. No nausea today. Remains just slightly febrile ; highest temp this shift is 100.1. remains at bedside.
[2016-04-19] MEDS: TETRAHYDROZOLINE 0.05% EYE DROP 15ml BOTH EYES SCH (18:34)
[2016-04-19] MEDS: NS 500 ML IV PRN (21:41)
[2016-04-20] VITALS (7 sets, daily range): BP systolic 110–135; BP diastolic 64–74; PULSE 70–84; RESP 16–20; TEMP 96–98.4; O2SAT 96–98
--- NOTE | 2016-04-20 00:49 | NUR ---
Chart Check 24 hour chart check completed
[2016-04-20] MEDS: LR 1,000 ML IV SCH ×2 (03:30→03:40)
[2016-04-20] MEDS: PIPERACILLIN/TAZOBACTAM 2.25 G in NORMAL SALINE 100 ML IV SCH ×4 (03:39→20:30)
--- NOTE | 2016-04-20 05:15 | NUR ---
SHIFT SUMMARY PT HAS SLEPT SOUNDLY THROUGHOUT THE NIGHT. DENIES PAIN/N/V/SOA. NO PRNS GIVEN. PT UP WITH STANDBY ASSIST OF BATHROOM, STEADY GAIT. PT HAS HAD 2 LOOSE STOOLS TONIGHT. TREVINO CATHETER WITH ADEQUATE OUTPUT. NPO DIET, EXCEPT MEDS. LR RUNNING @ 100ML/HR IN LEFT AC. VSS, ON RA. Q6H BGM CHECKS. BED LOCKED AND LOW, BED ALARM ON. CALL LIGHT WITHIN REACH. WILL CONTINUE TO MONITOR.
[2016-04-20 05:19] LABS: BASOPHILS # (AUTO) 0.1 T/MM3 (0-0.2); BASOPHILS % (AUTO) 0.8 % (0-2); EOSINOPHILS # (AUTO) 0.8 T/MM3 (0-0.5); EOSINOPHILS % (AUTO) 8.7 % (0-4); HCT - HEMATOCRIT 31.8 % (41-53); HGB - HEMOGLOBIN 10.1 GM/DL (13.5-17.5); IMMATURE GRANULOCYTE # (AUTO) 0.02 T/MM3 (0.00-0.03); IMMATURE GRANULOCYTE % (AUTO) 0.2 % (0.0-0.5); LYMPHOCYTES # (AUTO) 1.2 T/MM3 (1-4.8); LYMPHOCYTES % (AUTO) 14.2 % (23-45); MEAN CORPUSCULAR HGB 27.4 UUG (26-34); MEAN CORPUSCULAR HGB CONC(MCHC 31.8 GM/DL (31-37); MEAN CORPUSCULAR VOLUME 86.2 UM3 (80-100); MEAN PLATELET VOLUME 10.9 UM3 (9.4-12.4); MONOCYTES # (AUTO) 0.5 T/MM3 (0-0.8); MONOCYTES % (AUTO) 5.7 % (0-9.0); NEUTROPHILS #(AUTO)-ABSOLUTE 6.2 T/MM3 (1.8-7.7); NEUTROPHILS % (AUTO) 70.4 % (33-66); RED BLOOD COUNT 3.69 M/MM3 (4.50-5.90); WBC - WHITE BLOOD COUNT 8.8 T/MM3 (4.5-11.0)
[2016-04-20 05:31] LABS: ANION GAP 10 MEQ/L (5-15); BUN/CREATININE RATIO 15 RATIO (6-26); CHLORIDE 112 MEQ/L (98-107); CO2 - CARBON DIOXIDE 25 MEQ/L (22-30); CREATININE 1.9 MG/DL (0.8-1.5); GLOMERULAR FILTRATION RATE 35; GLUCOSE 112 MG/DL (75-110); MAGNESIUM 1.8 MG/DL (1.6-2.3); POTASSIUM 3.4 MEQ/L (3.6-5); SODIUM 147 MEQ/L (134-144)
[2016-04-20] MEDS: PANTOPRAZOLE 40mg INJECTION IV SCH ×2 (09:17→20:30)
--- NOTE | 2016-04-20 10:03 | NUR ---
STATUS/AMBULATION PATIENT REPORTS HE IS FEELING MUCH BETTER TODAY. DENIES PAIN OR DISCOMFORT. AMBULATED IN HALLWAY WITH SBA. TOLERATED VERY WELL.
[2016-04-20] MEDS: 1/2 NS w/ KCL 20mEq 1,000 ML IV SCH ×2 (10:15→21:24)
--- NOTE | 2016-04-20 14:02 | PNPDOC ---
Subjective Date DATE: 04/20/16 TIME: 13:45 Subjective F/U: Severe sepsis, Ab mass-abscess vs pseudocyst, TIM Doing well this morning. Much less discomfort to abdomen. No nausea. Not having vomiting. Appetite increasing; feels more hungry and would like cold water to drink. Passing stool - loose, but C diff tox negative. Breathing well. No pain with breathing, cough or congestion. No chest pressure. Urine output increased and less dark colored. Ambulating well in halls. Objective Vital Signs Vital signs Vital Signs Date Time Temp Pulse Resp B/P Pulse Ox O2 Delivery O2 Flow Rate FiO2 04/20/16 11:23 98.1 80 18 126/66 98 Room Air Telemetry Rhythm: Sinus Tachycardia Height (Feet): 5 Height (Inches): 4.00 Weight (Kilograms): 101.600 General General Appearance: Alert, Obese, Orientated x 3, Well Nourished, Well Developed, Cooperative, Looks Stated Age Eyes (Brief) Eyes: FOUND: EOMI, PERRL, NOT FOUND: scleral icterus ENMT (Brief) ENMT: FOUND: hearing intact, mucosa moist Neck (Brief) Neck: FOUND: midline, NOT FOUND: nuchal rigidity, spasm Respiratory (Brief) Respiratory: FOUND: clear all morales, equal bilaterally, NOT FOUND: rales, wheezes Cardiovascular (Brief) Cardiac: FOUND: regular rate, regular rhythm, NOT FOUND: pedal edema Abdomen (Brief) Abdominal: FOUND: BS normo active x4, soft, tender (Less tender than yesterday , no rebound or quarding.), NOT FOUND: distended (Brief) Male: FOUND: other (Cavazos in place - 2100 cc out today. ) Extremities (Brief) Extremity : Side: Bilateral Extremity: leg Extremity Finding: FOUND: other (SCD present ), NOT FOUND: edema Musculoskeletal (Brief) Musculoskeletal: FOUND: extremities move equally, NOT FOUND: deformity, loss of motion, spasm Integumentary (Brief) Integumentary: FOUND: dry, warm Neurologic (Brief) Neurological: FOUND: cranial 2-12 intact, motor (Intact ) Psychiatric (Brief) Psychiatric: FOUND: alert, attentive, normal affect, oriented Laboratory Laboratory Laboratory Tests 04/19/16 06:32 04/20/16 04:19 Laboratory Tests 04/19/16 06:32 04/20/16 04:19 Sepsis Diagnostic Criteria Sepsis Confirmed/Suspected Infection: Yes SIRS Criteria: Pulse >= 90 beats/min, WBC >=12,000 or <=4,000 Severe Sepsis Lactate >=2.0 mg/dL Assessment & Plan Problems: (1) Severe sepsis Status: Acute Assessment & Plan: Manifestations of sepsis include elevated lactic acid level , leukocytosis with left shift, tachycardia. (2) Pancreatic pseudocyst Status: Acute Assessment & Plan: Rule out: Radiology reviewed CT from admit - no definitive pseudocyst or pancreatic necrosis. (3) Acute kidney injury Status: Acute Assessment & Plan: Likely ATN due to contrast and low blood pressure. (4) Type II diabetes mellitus Status: Chronic Qualifiers: Diabetes mellitus complication status: without complication Diabetes mellitus snf insulin use: without manager terminal use Qualified Codes: E11.9 - Type 2 diabetes mellitus without complications Assessment & Plan: On metformin as an outpatient, holding, will use correction scale insulin and AC/HS accuchecks inpatient (5) HTN (hypertension) Status: Chronic Qualifiers: Hypertension type: essential hypertension Qualified Codes: I10 - Essential (primary) hypertension (6) Hyperlipidemia Status: Chronic Qualifiers: Hyperlipidemia type: mixed hyperlipidemia Qualified Codes: E78.2 - Mixed hyperlipidemia Assessment & Plan: Maintained on statin therapy (7) OA (osteoarthritis) Status: Chronic Qualifiers: Osteoarthritis location: multiple joints Osteoarthritis type: primary Qualified Codes: M15.0 - Primary generalized (osteo)arthritis (8) Esophagitis Status: Chronic Assessment & Plan: EGD Apr 02, 2016: Severe distal esophagitis with ulceration. (9) Obesity Status: Chronic Qualifiers: Obesity type: due to excess calories Obesity severity: non-morbid Qualified Codes: E66.09 - Other obesity due to excess calories Plan/Intensity of Service Case discussed with Dr Godfrey - with further review of CT from admit and clinical improvement, do not see evidence of pancreatic necrosis or pseudocyst. Can advance diet to clear liquids - advised caution with oral intake. Change IVF to 1/2NS with 20KCL at 100 cc/hr secondary to increasing sodium and decreasing potassium. Continue to hold antihypertensive as BP controlled currently without meds. Will start bladder retraining, likely d/c cavazos tomorrow. Encourage ambulation. Recheck CMP, Mg and lipase in am as diet advance. Repeat CBC due to resolving leukocytosis. Case discussed with Dr Wall and family. Time spent with patient care 35 minutes. DVT Prophylaxis: SCD'S Code Status Full Code Hospital Course Summary Disclaimer The hospital course summary below is not to be considered part of the above Progress Note. Hospital Course Summary 04/17/2016 Admit to the medical floor with telemetry, monitor for any changes Blood cultures and broad spectrum coverage with Zosyn, monitor for symptoms that would reveal source CTAP as discussed, will obtain prior to leaving ED Will order peripheral smear for further evaluation given elevated WBC and platelets--? reactive process versus bone marrow/malignancy issue Hold metformin, monitor AC/HS accuchecks with correction scale aspart Hold statin and BP medications and monitor vitals Monitor for fevers, recheck CMP and CBC in AM for surveillance Regular diet if CTAP unremarkable 04/18 Had episode of nausea and 'spit up' today about 1300. Noted ab pain with this, otherwise not having ab discomfort. Passing stool. Notes felling feverish at time. Breathing well without SOA, cough or congestion. No pain with breathing or ab pain with breathing. Denies chest pressure or pain. Notes rash to arms, legs and trunk-some itching. WBC decreased to 21.2. Platelets decreased to 396. Creatinine stable at 1.0. Temp elevation to 100.7. Continue with Zosyn for antimicrobial coverage. Continue IVF for support due to NPO status. 250cc fluid bolus as BP with decrease this afternoon. Consult with Dr Godfrey due to CT Ab abnormality - concern for pancreatic pseudocyst. NPO for bowel rest. Add SCD for DVT prevention - hold on Lovenox in case Sx procedure required. Recheck CMP, Mg, CBC, and lipase in am. 04/19 Doing about the same. Notes minimal abdominal pain - some soreness at times, but not really hurting. No nausea, but had episodes of vomiting small amounts. Passing flatus and does report small stool today. Breathing well-no SOA or congested. No pain with breathing or cough. No chest heaviness or pressure. No f /c. WBC decrease to 15.1-69% polys and 18% bands. Creatinine increased to 2.7. Potassium 3.8. Lipase normal. Cavazos placed due to TIM-likely ATN from hypotension and IV contrast. Renal US ordered. Continue with IVF - will give additional 500cc bolus. Monitor urine output. Hold Nephrotoxins. Continue with Zosyn for antimicrobial coverage. Continue Bowel rest. Recheck CMP in am to monitor electrolytes and renal status - will need to monitor liver enzymes due to ab mass. Recheck CBC in am due to leukocytosis. 04/20 Doing well this morning. Much less discomfort to abdomen. No nausea. Not having vomiting. Appetite increasing; feels more hungry and would like cold water to drink. Passing stool - loose, but C diff tox negative. Breathing well. No pain with breathing, cough or congestion. No chest pressure. Urine output increased and less dark colored. Ambulating well in halls. WBC normalized at 8.8. Creatinine decreased to 1.9. Sodium increased to 147 with potassium decreased to 3.4. Case discussed with Dr Godfrey - with further review of CT from admit and clinical improvement, do not see evidence of pancreatic necrosis or pseudocyst. Can advance diet to clear liquids - advised caution with oral intake. Change IVF to 1/2NS with 20KCL at 100 cc/hr secondary to elevating sodium and decreased potassium. Will start bladder retraining, likely d/c Cavazos tomorrow. Continue to hold antihypertensive as BP controlled currently without meds. Encourage ambulation. Recheck CMP, Mg and lipase in am as diet advance. Repeat CBC due to resolving leukocytosis. BENEDICT TRUONG MD Apr 20, 2016 13:48
[2016-04-20 14:40] LABS: C. DIFFICILE TOXIN B NEGATIVE (NEGATIVE)
--- NOTE | 2016-04-20 17:56 | NUR ---
SHIFT SUMMARY VSS. PATIENT HAS DENIED PAIN ALL DAY. DIET ADVANCED TO CLEAR LIQUIDS WITH TOAST AND CRACKERS AND PATIENT IS TOLERATING VERY WELL. TREVINO CATHETER REMAINS PATENT, BLADDER RETRAINING IN PLACE. EXCELLENT URINE OUTPUT. SEVERAL BMS TODAY, LIQUID, BROWN/GREEN, MUCOID; NEGATIVE FOR CDIF. UP WITH SBA. 1/2NS WITH 20MEQ KCL INFUSING.
--- NOTE | 2016-04-20 18:09 | NUR ---
BLOOD GLUCOSE CHECKS NOW ACHS PER DR ORDERS IN BLOOD SUGAR MANFRED BOX, BLOOD SUGARS ARE NOW BEING CHECKED ACHS NOW THAT PATIENT IS EATING AGAIN. NO LONGER Q6H.
[2016-04-20] MEDS: TETRAHYDROZOLINE 0.05% EYE DROP 15ml BOTH EYES SCH (20:30)
[2016-04-21] MEDS: PIPERACILLIN/TAZOBACTAM 2.25 G in NORMAL SALINE 100 ML IV SCH ×2 (02:34→08:09)
[2016-04-21 04:18] VITALS: BP 120/68; PULSE 66; RESP 20; TEMP 98.1; O2SAT 96
[2016-04-21 05:03] LABS: BASOPHILS # (AUTO) 0.1 T/MM3 (0-0.2); BASOPHILS % (AUTO) 0.8 % (0-2); EOSINOPHILS # (AUTO) 1.1 T/MM3 (0-0.5); HCT - HEMATOCRIT 31.6 % (41-53); HGB - HEMOGLOBIN 10.3 GM/DL (13.5-17.5); IMMATURE GRANULOCYTE # (AUTO) 0.03 T/MM3 (0.00-0.03); IMMATURE GRANULOCYTE % (AUTO) 0.4 % (0.0-0.5); LYMPHOCYTES # (AUTO) 1.4 T/MM3 (1-4.8); LYMPHOCYTES % (AUTO) 18.4 % (23-45); MEAN CORPUSCULAR HGB 27.6 UUG (26-34); MEAN CORPUSCULAR HGB CONC(MCHC 32.6 GM/DL (31-37); MEAN CORPUSCULAR VOLUME 84.7 UM3 (80-100); MEAN PLATELET VOLUME 10.1 UM3 (9.4-12.4); MONOCYTES # (AUTO) 0.6 T/MM3 (0-0.8); MONOCYTES % (AUTO) 7.7 % (0-9.0); NEUTROPHILS #(AUTO)-ABSOLUTE 4.6 T/MM3 (1.8-7.7); NEUTROPHILS % (AUTO) 58.7 % (33-66); RED BLOOD COUNT 3.73 M/MM3 (4.50-5.90); WBC - WHITE BLOOD COUNT 7.8 T/MM3 (4.5-11.0)
--- NOTE | 2016-04-21 05:14 | NUR ---
summary remains on room air. vss. up x sba to bathroom. bm this shift. cavazos patent, draining. bladder retraining was frustrating patient due to having a large amount of output and leaking around the cavazos on an hourly basis. patient became frustrated with this occurrence and did not wish to have the retraining done at this time. denies pain, n/v, soa. no new concerns.
[2016-04-21 05:15] LABS: ALBUMIN/GLOBULIN RATIO 0.9 RATIO (1.1-2.2); ALKALINE PHOSPHATASE 96 U/L (38-126); ALT (SGPT) 38 U/L (21-72); ANION GAP 11 MEQ/L (5-15); AST (SGOT) 46 U/L (17-59); BUN/CREATININE RATIO 14 RATIO (6-26); CALCIUM 8.1 MG/DL (8.4-10.2); CHLORIDE 106 MEQ/L (98-107); CO2 - CARBON DIOXIDE 24 MEQ/L (22-30); CREATININE 1.1 MG/DL (0.8-1.5); GLOMERULAR FILTRATION RATE 65; GLUCOSE 103 MG/DL (75-110); LIPASE 118 U/L (23-300); MAGNESIUM 1.7 MG/DL (1.6-2.3); POTASSIUM 3.2 MEQ/L (3.6-5); SODIUM 141 MEQ/L (134-144); TOTAL PROTEIN 6.3 G/DL (6.3-8.2)
[2016-04-21 07:43] VITALS: BP 124/69; PULSE 64; RESP 18; TEMP 96.9; O2SAT 98
[2016-04-21 07:46] VITALS: PULSE 64; RESP 18
[2016-04-21] MEDS: ENOXAPARIN 40 MG/0.4 ML INJECTION SQ SCH ×2 (08:10→09:02)
[2016-04-21] MEDS: PANTOPRAZOLE 40mg INJECTION IV SCH (08:10)
[2016-04-21] MEDS: DiphenhydrAMINE 50 MG/ML INJECTION IV PRN (08:42)
--- NOTE | 2016-04-21 08:45 | NUR ---
BENADRYL PROPHYLACTICALLY PATIENT REPORTED A RASH WITH PREVIOUS DOSES OF LOVENOX. BENADRYL GIVEN NOW AND LOVENOX WILL BE GIVEN IN ABOUT 30 MINUTES.
[2016-04-21] MEDS: PIPERACILLIN/TAZOBACTAM 3.375 G in NORMAL SALINE 100 ML IV SCH ×2 (09:00→14:45)
[2016-04-21] MEDS: 1/2 NS w/ KCL 20mEq 1,000 ML IV SCH (09:02)
--- NOTE | 2016-04-21 09:03 | NUR ---
RENAL DOSING: Zosyn Today's SCr = 1.1 mg/dl. Calculated CrCl = 60 ml/min. Renal function improved. Zosyn returned to normal dose Zosyn 3.375 G IV Q6H. Thank you, Mariluz Germain RPh
--- NOTE | 2016-04-21 10:07 | NUR ---
STATUS/AMBULATION PATIENT AMBULATED FOR 5 MINUTES IN HALLWAY, DID VERY WELL. PATIENT DENIES ANY ABDOMINAL TENDERNESS OR NAUSEA SINCE DIET HAS BEEN ADVANCED. STOOLS MORE FORMED TODAY.
[2016-04-21] MEDS ORDERED: 1/2 NS w/ KCL 20mEq 1,000 ML IV SCH (10:30)
--- NOTE | 2016-04-21 10:53 | NUR ---
CM CM IN TO VISIT WITH PT. HE IS ALERT AND ORIENTED. HIS IS PRESENT. PT PLANS TO DC HOME. HE DENIES DC NEEDS. HIS LACE SCORE IS 10. PT IS GIVEN UPDATED CM CONTACT INFORMATION. Addendum: 04/21/16 at 1054 by MADAN ATKINSON RN Amended: Links added.
--- NOTE | 2016-04-21 10:58 | PNPDOC ---
Subjective Date DATE: 04/21/16 TIME: 10:45 Subjective F/U: Severe sepsis, Ab mass-abscess vs pseudocyst, TIM Doing well this morning. Tolerating clear liquids well-no increase ab pain or nausea with oral intake. Appetite intact-feels hungry. Passing stool-formed. No f/c. Breathing well. No chest pain. Ambulating well. No new concerns. Hoping to go home soon. Objective Vital Signs Vital signs Vital Signs Date Time Temp Pulse Resp B/P Pulse Ox O2 Delivery O2 Flow Rate FiO2 04/21/16 07:46 64 18 04/21/16 07:43 96.9 124/69 98 Room Air Telemetry Rhythm: Sinus Tachycardia Height (Feet): 5 Height (Inches): 4.00 Weight (Kilograms): 102.600 General General Appearance: Alert, Obese, Orientated x 3, Well Nourished, Well Developed, Cooperative, No Acute Distress, Looks Stated Age Eyes (Brief) Eyes: FOUND: EOMI, PERRL, NOT FOUND: scleral icterus ENMT (Brief) ENMT: FOUND: hearing intact, mucosa moist Neck (Brief) Neck: FOUND: midline, NOT FOUND: nuchal rigidity, spasm Respiratory (Brief) Respiratory: FOUND: clear all morales, equal bilaterally, other (No distress on RA. ), NOT FOUND: rales, wheezes Cardiovascular (Brief) Cardiac: FOUND: regular rate, regular rhythm, NOT FOUND: pedal edema Abdomen (Brief) Abdominal: FOUND: BS normo active x4, soft, NOT FOUND: distended, tender Extremities (Brief) Extremity : Side: Bilateral Extremity: leg Extremity Finding: FOUND: other (SCD in place ), NOT FOUND: edema Musculoskeletal (Brief) Musculoskeletal: FOUND: extremities move equally, NOT FOUND: deformity, loss of motion, spasm, tenderness Integumentary (Brief) Integumentary: FOUND: dry, warm Neurologic (Brief) Neurological: FOUND: cranial 2-12 intact, motor (Intact ) Psychiatric (Brief) Psychiatric: FOUND: alert, attentive, normal affect, oriented Laboratory Laboratory Laboratory Tests 04/20/16 04:19 04/21/16 04:53 Laboratory Tests 04/20/16 04:19 04/21/16 04:53 Sepsis Diagnostic Criteria Sepsis Confirmed/Suspected Infection: Yes SIRS Criteria: Pulse >= 90 beats/min, WBC >=12,000 or <=4,000 Severe Sepsis Lactate >=2.0 mg/dL Assessment & Plan Problems: (1) Severe sepsis Status: Resolved Assessment & Plan: Manifestations of sepsis include elevated lactic acid level , leukocytosis with left shift, tachycardia. (2) Pancreatitis Status: Resolved Qualifiers: Chronicity: acute Pancreatitis type: unspecified pancreatitis type Acute pancreatitis complication: unspecified Qualified Codes: K85.90 - Acute pancreatitis without necrosis or infection, unspecified Assessment & Plan: Phlegmon noted on CT - no anu luc pseudocyst or necrosis noted. (3) Acute kidney injury Status: Resolved Assessment & Plan: Likely ATN due to contrast and low blood pressure. Renal US normal. (4) Type II diabetes mellitus Status: Chronic Qualifiers: Diabetes mellitus complication status: without complication Diabetes mellitus alf insulin use: without exterminator helper use Qualified Codes: E11.9 - Type 2 diabetes mellitus without complications Assessment & Plan: On metformin as an outpatient, holding, will use correction scale insulin and AC/HS accuchecks inpatient (5) HTN (hypertension) Status: Chronic Qualifiers: Hypertension type: essential hypertension Qualified Codes: I10 - Essential (primary) hypertension (6) Hyperlipidemia Status: Chronic Qualifiers: Hyperlipidemia type: mixed hyperlipidemia Qualified Codes: E78.2 - Mixed hyperlipidemia Assessment & Plan: Maintained on statin therapy (7) OA (osteoarthritis) Status: Chronic Qualifiers: Osteoarthritis location: multiple joints Osteoarthritis type: primary Qualified Codes: M15.0 - Primary generalized (osteo)arthritis (8) Esophagitis Status: Chronic Assessment & Plan: EGD Apr 02, 2016: Severe distal esophagitis with ulceration. (9) Obesity Status: Chronic Qualifiers: Obesity type: due to excess calories Obesity severity: non-morbid Qualified Codes: E66.09 - Other obesity due to excess calories Plan/Intensity of Service Continue with Zosyn for antimicrobial coverage. Advance diet to 2000 KCAL ADA - advised caution with oral intake. Decrease IVF to 75 cc/hr as diet advancing. Will give 20 mEq KCL x2 today as potassium low. MagOx 400mg x1 with lunch as mag low normal at 1.7. D/C Almeida cath. Change Protonix to oral and restart Carafate. May restart ASA. Hold on Metformin and Zocor due to resolving pancreatitis. Holding JENNIFER inhibitor due to resolving TIM. Continue to hold antihypertensive as BP controlled currently without meds. Continue ambulation. Recheck BMP and lipase in am as diet is advanced. Repeat CBC due to resolving leukocytosis. Possible discharge later today or tomorrow depending on how he is doing. Time spent with patient care 35 minutes. 1900 - rechecked on pt this evening. Doing well. Tolerating regular foods without problems. No pain or nausea. Will d/c to home. Hold metformin and simvastatin until seen by Dr Batres. Would recommend not restarting simvastatin until CT evidence of pancreatitis resolves. May restart Lotrel on 04/24. F/U with Dr Batres in 1 week - recommend repeating BMP to assess renal and electrolyte status with JENNIFER inhibitor use in resolving TIM. Will need repeat CT ab/pelvis in about 1 week to document resolution of pancreatic phlegmon. See orders for details. Case discussed with Dr Godfrey. DVT Prophylaxis: SCD'S Code Status Full Code Hospital Course Summary Disclaimer The hospital course summary below is not to be considered part of the above Progress Note. Hospital Course Summary 04/17/2016 Admit to the medical floor with telemetry, monitor for any changes Blood cultures and broad spectrum coverage with Zosyn, monitor for symptoms that would reveal source CTAP as discussed, will obtain prior to leaving ED Will order peripheral smear for further evaluation given elevated WBC and platelets--? reactive process versus bone marrow/malignancy issue Hold metformin, monitor AC/HS accuchecks with correction scale aspart Hold statin and BP medications and monitor vitals Monitor for fevers, recheck CMP and CBC in AM for surveillance Regular diet if CTAP unremarkable 04/18 Had episode of nausea and 'spit up' today about 1300. Noted ab pain with this, otherwise not having ab discomfort. Passing stool. Notes felling feverish at time. Breathing well without SOA, cough or congestion. No pain with breathing or ab pain with breathing. Denies chest pressure or pain. Notes rash to arms, legs and trunk-some itching. WBC decreased to 21.2. Platelets decreased to 396. Creatinine stable at 1.0. Temp elevation to 100.7. Continue with Zosyn for antimicrobial coverage. Continue IVF for support due to NPO status. 250cc fluid bolus as BP with decrease this afternoon. Consult with Dr Godfrey due to CT Ab abnormality - concern for pancreatic pseudocyst. NPO for bowel rest. Add SCD for DVT prevention - hold on Lovenox in case Sx procedure required. Recheck CMP, Mg, CBC, and lipase in am. 04/19 Doing about the same. Notes minimal abdominal pain - some soreness at times, but not really hurting. No nausea, but had episodes of vomiting small amounts. Passing flatus and does report small stool today. Breathing well-no SOA or congested. No pain with breathing or cough. No chest heaviness or pressure. No f /c. WBC decrease to 15.1-69% polys and 18% bands. Creatinine increased to 2.7. Potassium 3.8. Lipase normal. Almeida placed due to TIM-likely ATN from hypotension and IV contrast. Renal US ordered. Continue with IVF - will give additional 500cc bolus. Monitor urine output. Hold Nephrotoxins. Continue with Zosyn for antimicrobial coverage. Continue Bowel rest. Recheck CMP in am to monitor electrolytes and renal status - will need to monitor liver enzymes due to ab mass. Recheck CBC in am due to leukocytosis. 04/20 Doing well this morning. Much less discomfort to abdomen. No nausea. Not having vomiting. Appetite increasing; feels more hungry and would like cold water to drink. Passing stool - loose, but C diff tox negative. Breathing well. No pain with breathing, cough or congestion. No chest pressure. Urine output increased and less dark colored. Ambulating well in halls. WBC normalized at 8.8. Creatinine decreased to 1.9. Sodium increased to 147 with potassium decreased to 3.4. Case discussed with Dr Godfrey - with further review of CT from admit and clinical improvement, do not see evidence of pancreatic necrosis or pseudocyst. Can advance diet to clear liquids - advised caution with oral intake. Change IVF to 1/2NS with 20KCL at 100 cc/hr secondary to elevating sodium and decreased potassium. Will start bladder retraining, likely d/c Almeida tomorrow. Continue to hold antihypertensive as BP controlled currently without meds. Encourage ambulation. Recheck CMP, Mg and lipase in am as diet advance. Repeat CBC due to resolving leukocytosis. 04/21 Doing well this morning. Tolerating clear liquids well-no increase ab pain or nausea with oral intake. Appetite intact-feels hungry. Passing stool-formed. No f/c. Breathing well. No chest pain. Ambulating well. No new concerns. Hoping to go home soon. Creatinine 1.1. Potassium decreased to 3.2. Mg 1.7. Liver enzymes normal. Lipase normal. WBC normal at 7.8. Continue with Zosyn for antimicrobial coverage. Advance diet to 2000 KCAL ADA - advised caution with oral intake. Decrease IVF to 75 cc/hr as diet advancing. Will give 20 mEq KCL x2 today as potassium low. MagOx 400mg x1 with lunch as mag low normal at 1.7. D/C Almeida cath. Change Protonix to oral and restart Carafate. May restart ASA. Hold on Metformin and Zocor due to resolving pancreatitis. Continue to hold antihypertensive as BP controlled currently without meds. Holding JENNIFER inhibitor due to resolving TIM. Continue ambulation. Recheck BMP and lipase in am as diet is advanced. Repeat CBC due to resolving leukocytosis. Possible discharge later today or tomorrow depending on how he is doing. 1900 - rechecked on pt this evening. Doing well. Tolerating regular foods without problems. No pain or nausea. Will d/c to home. Hold metformin and simvastatin until seen by Dr Batres. Would recommend not restarting simvastatin until CT evidence of pancreatitis resolves. May restart Lotrel on 04/24. F/U with Dr Batres in 1 week - recommend repeating BMP to assess renal and electrolyte status with JENNIFER inhibitor use in resolving TIM. Will need repeat CT ab/pelvis in about 1 week to document resolution of pancreatic phlegmon. See orders for details. BENEDICT TRUONG MD Apr 21, 2016 10:48
[2016-04-21] MEDS: SUCRALFATE 1 G TABLET PO SCH ×2 (11:17→17:11)
[2016-04-21] MEDS ORDERED: MAGNESIUM OXIDE 400 MG TABLET PO ONE (12:30)
[2016-04-21] MEDS ORDERED: POTASSIUM CHLORIDE 20 MEQ TABLET PO ONE ×2 (12:30→17:30)
[2016-04-21 15:54] VITALS: BP 140/72; PULSE 66; RESP 18; TEMP 95.3; O2SAT 98
[2016-04-21] MEDS ORDERED: PANTOPRAZOLE 40 MG TABLET PO SCH (17:00)
--- NOTE | 2016-04-21 18:37 | NUR ---
SHIFT SUMMARY VSS. RA. DENIES PAIN OF ANY KIND. VERY GOOD APPETITE AND PO INTAKE. CONTINUES TO HAVE SMALL, FORMED STOOLS. GOOD URINE OUTPUT, HOWEVER URINE IS SLIGHTLY PEACH TINGED SINCE TREVINO CATHETER REMOVAL. PATIENT DENIES PAIN WITH URINATION AND URINE DOES SEEM TO BE CLEARLY SLIGHTLY. BLOOD GLUCOSE CONTROLLED 94-150 THIS SHIFT. 1/2NS WITH 20 MEQ KCL INFUSING AT 75CC/HR. UP AD BRENDEN. PATIENT AMBULATED TWICE IN HALLWAY TODAY, TOLERATED VERY WELL.
[2016-04-21] MEDS ORDERED: AMOX-351 PO (19:07)
--- NOTE | 2016-04-21 19:24 | NUR ---
SCRIPT CALLED TO SRINI
[2016-04-21] MEDS ORDERED: AMOXICILLIN/CLAVULANATE 875 MG/125 MG TABLET PO ONE (19:30)
--- NOTE | 2016-04-21 19:36 | NUR ---
DISMISSAL TO HOME VSS. RA. DENIES PAIN. PATIENT AND EDUCATED ON DISCHARGE INSTRUCTIONS, MEDS, AND F/U APPOINTMENTS. IV DISCONTINUED.
--- NOTE | 2016-04-21 19:39 | NUR ---
AUGMENTIN AUGMENTIN NOT ADMINISTERED BECAUSE PATIENT WILL BE ABLE TO STRUCTURED CABLING TECHNICIAN PRESCRIPTION TONIGHT FROM PHARMACY.
--- NOTE | 2016-04-21 19:40 | NUR ---
DISCHARGE TAKEN TO FRONT ENTRANCE BY WHEELCHAIR. TAKEN HOME BY VIA PRIVATE CAR.
[2016-04-22] MEDS ORDERED: ASPIRIN *EC* 81mg TABLET PO SCH (09:00)
--- NOTE | 2016-04-22 09:21 | DSF ---
ADMISSION DIAGNOSIS Sepsis. DISCHARGE DIAGNOSIS 1. Severe sepsis secondary to acute pancreatitis - resolved. ASSOCIATED CONDITIONS AND COMPLICATIONS Pancreatitis - pancreatic phlegmon noted on CT scan. Rule out pancreatic pseudocyst/pancreatic necrosis - ruled out; no clinical evidence of pancreatic necrosis. Acute kidney injury - not present on admission (- secondary to IV contrast and low blood pressure). Resolved. Stage II chronic kidney disease. Type 2 diabetes mellitus. Hypertension. Hyperlipidemia. Osteoarthritis. Esophagitis. Obesity with BMI 38.8. PROCEDURES Renal ultrasound - no evidence of hydronephrosis or medical renal disease. CT scan abdomen and pelvis - significant imaging evidence of progression in terms of degree of acute/subacute pancreatitis. - No anu luc pancreatic pseudocyst or pancreatic necrosis. CONSULTS Mark Godfrey MD - Surgery CLINICAL RESUME Mr. Garcia is a 75-year-old gentleman who presents to [facility] emergency room with rigors and vomiting. He does have recent admission for acute pancreatitis of unclear etiology. He was able to be discharged to home on 04/04/2016. During that admission, he was treated for community-acquired pneumonia which resolved radiographically. He was discharged on Augmentin. He has recently finished course of outpatient antibiotic therapy. On morning of presentation, he had two episodes of nonbloody, nonbilious emesis and also developed rigors. He has not had abdominal pain but has been feeling poorly after he vomited. In emergency room he was evaluated. White count is elevated 29.2 with 93% neutrophils and 3% bands. Lactate is elevated at 2.5 with procalcitonin 0.21. Of note, lipase is only 223. UA was unremarkable. Chest x-ray showed no acute cardiopulmonary pathology. CT scan of abdomen and pelvis shows progression in terms of degree of acute/subacute pancreatitis. Potential areas for bull necrosis or developing pseudocyst was raised. In light of his severe sepsis, leukocytosis and elevated lactate, hospitalist service was notified and he was subsequently placed in inpatient admission status at [facility] for further evaluation and treatment. For complete details of the H&P refer to that document. LABORATORY White blood count is 29.2 with 93% neutrophils and 3% bands. Hemoglobin was 12.3 with hematocrit 37.8, MCV 85.9 and platelets 497,000. Serum sodium is 143, potassium 4.3, chloride 105, CO2 24, BUN 11 with creatinine 1.0, GFR 72 and blood glucose 143. Transaminases are unremarkable. Lipase is 223. Lactate is elevated at 2.5 with procalcitonin 0.21. UA reveals low specific gravity of 1.010 with 1+ protein, trace bacteria. C. Diff toxin B gene is negative. Influenza type A and B antigens are both negative. HOSPITAL COURSE The patient was placed in inpatient admission status at [facility] under the hospitalist service. Cardiac telemetry was initiated. He was started on Zosyn for empiric antimicrobial coverage of GI pathogens. IV fluids were initiated for hydration. Initially he was made n.p.o. for bowel rest in light of abnormalities noted on CT. We did hold metformin and also held statin and blood pressure medications secondary to his sepsis. Lab was monitored. Lovenox was initially started for DVT prophylaxis but with concerns about possible pancreatic necrosis or pseudocyst formation, Lovenox was held and SCDs were initiated. By hospital day #1 he was not having abdominal pain but did note nausea and was having some emesis. White count was trending downward. As blood pressure was low, he did receive additional IV fluid boluses of normal saline to help with renal support. We did consult with Dr. Godfrey due to the CT scan abnormality noted. Dr. Godfrey had followed with the patient during his prior admission for pancreatitis. It was on the that Lovenox was held (had received a dose that morning) - SCDs were initiated. We did see his white count trend downward with it decreasing to 21.2 by hospital day #1. By hospital day #2, white count had shown further decrease down to 15.5. Unfortunately we did see interval increase in creatinine up to 2.7. In light of this, Almeida catheter was placed to exclude potential obstruction. Renal sonogram was obtained which showed no hydronephrosis. IV fluids were continued. By the next day, his creatinine had decreased to 1.9 and the following day creatinine normalized. Most likely he had acute kidney injury secondary to contrast nephropathy and his diabetes. Almeida catheter was able to be removed and patient was urinating well without Almeida catheter. We did monitor his lipase during the hospitalization and it remained normal. In discussion with Dr. Godfrey (who did review CT imaging from presentation with radiology), it was thought that most likely he did not have pancreatic necrosis or pseudocyst. Due to how well he was doing clinically, we did not pursue fine-needle aspiration. It is hoped that his pancreatic phlegmon will continue to resolve spontaneously on its own. Will be holding his simvastatin as potential statin medications can predispose patients to pancreatitis. I would also like him to hold his metformin until he is seen by Dr. Batres in the near future secondary to his recent acute kidney injury. Overall though, he did quite well. His white count normalized on the . As his symptoms were doing quite well on that day we did advance to clear liquids and patient tolerated this well without adverse effect. By the (day of discharge), white count was still stable. We saw no elevation of liver enzymes or lipase. Potassium was decreased so oral potassium was initiated. On the we did advance diet to regular and patient tolerated this well. He was reassessed on the evening and not having any troubles with p.o. intake. He was urinating well without pain or discomfort. He was afebrile and his vitals were stable. Blood sugars were showing good overall control during the hospitalization. He was ambulating in the halls without difficulty. In light of his clinical improvement, he expressed desire for discharge to home and we felt this would be quite reasonable. He will definitely need continued outpatient followup. Narrative disclaimer: Above narrative is a brief summary of the patient's hospitalization. For complete details of the hospital course, refer to the medical record. DISCHARGE CONDITION Stable/good. DIET 2000 kilocalorie ADA low sodium. ACTIVITIES As tolerated. MEDICATIONS Augmentin 875 mg p.o. b.i.d. x10 days. Lotrel 11/25 daily - may start 04/24. HOLD metformin until seen by Dr. Batres. HOLD simvastatin until seen by Dr. Batres - recommend restarting once radiographic evidence of pancreatitis resolved. Aspirin 81 mg daily. Protonix 40 mg daily. Carafate wound 1 g q.i.d. Visine eyedrops 1 drop to both eyes q.h.s. FOLLOWUP The patient will follow with Dr. Batres in one week - recommend rechecking BMP at that time secondary to resolving acute kidney injury and reinstitution of JENNIFER inhibitor therapy up. Additionally, it is recommended that the patient be set up for CT scan of his abdomen and pelvis to document continued improvement of his pancreatitis and no formation of pseudocyst. Would recommend this procedure be done without IV contrast secondary to acute kidney injury developed during this hospitalization. Most likely his underlying severe sepsis contributed to his acute kidney injury. INSTRUCTIONS TO PATIENT The patient was instructed on his diagnosis and treatments provided. We discussed lab and radiographic findings. We advised the patient on healthy well-rounded diet and activity. Advised caution with eating, to monitor for increasing abdominal pain or discomfort. He should notify his physician if he develops temperature greater than 100.4. If he would develop severe abdominal pain/discomfort or intractable nausea, he should be in contact with his primary provider. Additionally he will watch for loose stools. Should other problems or need occur, he could be in contact with Dr. Batres. If symptoms become quite dire, he can present to emergency room for acute evaluation. He voiced understanding of the above. Time spent with discharge greater than 35 minutes. JACKIE
== END 2016-04-21 19:40 | disposition home or self-care (01) | DRG 871 ==
LOC: ED 11:10 → EDHOLD 13:58 → MED 14:39
PROVIDERS: ADMIT Internal Medicine; ATTEND Hospitalist
DX: A41.9 Sepsis, unspecified organism (principal); K85.90 Acute pancreatitis without necrosis or infection, unspecified; N17.0 Acute kidney failure with tubular necrosis; K22.10 Ulcer of esophagus without bleeding; R65.20 Severe sepsis without septic shock; E11.9 Type 2 diabetes mellitus without complications; T50.8X5A Adverse effect of diagnostic agents, initial encounter; I10 Essential (primary) hypertension; M15.0 Primary generalized (osteo)arthritis; E78.2 Mixed hyperlipidemia; E66.09 Other obesity due to excess calories; Z68.38 Body mass index [BMI] 38.0-38.9, adult; Z79.899 Other long term (current) drug therapy; Z79.82 Long term (current) use of aspirin; Z79.84 Long term (current) use of oral hypoglycemic drugs
CPT/HCPCS: 36000; 36415; 80048; 80053; 81001; 82948; 83605; 83690; 83735; 84145; 84484; 85025; 87040; 87400; 87493; 93005

== ENCOUNTER → 2016-05-02 | Outpatient (CLI) | payer MEDICARE, BC ==
[~2016-05-02] MED LIST changes: +AMOX-351 PO; -GUAI600T42 PO; -KCL PO; -METF-200 PO; +PANT40SU PO; -PANT40TA PO; -SIMV40TA82 PO; -SUCR1ORA PO; +SUCR1TAB PO; -augmentin PO
[2016-05-02 11:57] LABS: ALBUMIN 3.3 G/DL (3.5-5.0); ALBUMIN/GLOBULIN RATIO 0.7 RATIO (1.1-2.2); ALKALINE PHOSPHATASE 215 U/L (38-126); ALT (SGPT) 71 U/L (21-72); ANION GAP 11 MEQ/L (5-15); AST (SGOT) 91 U/L (17-59); BUN/CREATININE RATIO 8 RATIO (6-26); CALCIUM 8.7 MG/DL (8.4-10.2); CHLORIDE 99 MEQ/L (98-107); CO2 - CARBON DIOXIDE 31 MEQ/L (22-30); CREATININE 1.2 MG/DL (0.8-1.5); GLOMERULAR FILTRATION RATE 59; GLUCOSE 133 MG/DL (75-110); SODIUM 141 MEQ/L (134-144)
--- NOTE | 2016-05-02 12:30 | DI ---
Indication: ITS.REASON: K85.90 ACUTE PANCREATITIS W/O NECROSIS/INFECTION PROCEDURE: CT ABDOMEN W/O CONTRAST: Encounter: Initial Comparison: Contrasted CT abdomen pelvis study, 04/17/2016 Technique: Axial, coronal, and sagittal noncontrasted images of the abdomen; radiation dose reduction techniques were utilized Findings: There is significant image degradation on the basis of motion artifact. Lack of IV contrast limits assessment of the pancreas. There remains enlargement and indistinctness of the pancreas. There is some central lucency of gas density in the region of the pancreatic neck which could reflect bull necrosis. 13 x 9 cm retrogastric/lesser sac mass which is homogeneous but difficult to study without contrast likely reflecting a pseudocyst. A smaller 4.1 x 3.9 cm cystic structure projects somewhat more laterally to the left, likely an additional pseudocyst. Follow-up CT with IV and oral contrast recommended. 2.9 x 2.9 cm soft tissue attenuation density in the upper epigastrium to the left midline may represent reactive adenopathy. Noncontrasted images of the liver, spleen, adrenal glands, and kidneys demonstrate no appreciable change. Nonobstructive calculus of the right kidney noted. Lung bases demonstrates some fissural thickening on the right as well as basal scarring and some pleural thickening or trace effusion on the left. Bone review demonstrates bulky osteophytosis throughout the thoracolumbar spine. Impression: 1. Limited study without the benefit of intravascular contrast, particularly in regards to assessment of pancreatic tissue viability. 2. Large homogeneous retrogastric lesser sac mass effect which again is not well studied without contrast yet probably representing a large pseudocyst measuring 13 x 9 cm. However, this is difficult to separate from the posterior wall of the stomach. An additional pseudocyst may be forming measuring about 4 cm in greatest dimension anterior to the upper region of the spleen. 3. Gas density within the pancreatic neck suggesting necrosis. 4. Follow-up CT examination with oral and intravascular contrast recommended. .
== END ==
LOC: IMA 10:50
PROVIDERS: ATTEND Family Medicine
DX: K85.90 Acute pancreatitis without necrosis or infection, unspecified (principal); R93.5 Abnormal findings on diagnostic imaging of other abdominal regions, including retroperitoneum; N18.3 Chronic kidney disease, stage 3 (moderate)
CPT/HCPCS: 36415; 80053

== ENCOUNTER → 2016-06-17 | Outpatient (CLI) | payer MEDICARE, BC ==
[~2016-06-17] MED LIST changes: +GADOBUTROL 10mMol/10ml INJECTION IV ONE; +HYDR-3989 PO; +NORMAL SALINE 50 ML IV ONE; +OLME20TA15 PO; +SALINE FLUSH 10ml SYRINGE ONE
--- NOTE | 2016-06-17 13:36 | DI ---
Indication: ITS.REASON: K 86.89 DISEASE OF PANCREAS MRI ABDOMEN W/WO CONTRAST: Comparison: CT abdomen pelvis 04/17/2016 Technique: Patient is scanned with T1 and T2-weighted image sequences with additional post contrast imaging Findings: Patient showed normal heart size and no significant pleural effusions. No definitive liver lesions were seen. The kidneys seem grossly normal. Spleen was homogeneous. Patient shows either some which artifact from vascular pulsations were inability to suspend respiration that detail about the pancreas is not good. There are no significant pseudocysts or definitive masses or enhancing mass is identified after the contrast was administered but as mentioned there is such motion artifact it would the impossible see small lesions. Common duct did not seem to show any significant abnormality. No significant free fluid seen in the abdomen. No adenopathy noted in the retroperitoneum. Impression: Somewhat limited resolution particularly about the midline structures. No marked pseudocyst formation or definitive mass or enhancing mass noted after the contrast involving the pancreas. Liver, spleen, kidneys and retroperitoneum seemed grossly normal. .
== END ==
LOC: IMA 07:22
PROVIDERS: ATTEND Internal Medicine Gastroenterology
DX: K86.89 Other specified diseases of pancreas (principal); K86.3 Pseudocyst of pancreas; R63.4 Abnormal weight loss
CPT/HCPCS: 36569; 74183; A9585; C1751; J7050